=== PATIENT | female | born 1945 | race Caucasian/White ===

== ENCOUNTER 2021-03-09 11:46 | Emergency (ER) | payer OTHER, MEDICARE, BC, SELFPAY ==
[2021-03-09 11:48] VITALS: BP 162/84; PULSE 82; RESP 15; TEMP 36.4; O2SAT 95; BMI 29.0
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
[2021-03-09 12:50] VITALS: RESP 18
== END 2021-03-09 12:52 | disposition home or self-care (01) ==
LOC: ED 12:47
PROVIDERS: Emergency Provider Emergency Medicine; PCP Internal Medicine
DX: Z04.1 Encounter for examination and observation following transport accident (principal)
CPT/HCPCS: 99284

== ENCOUNTER 2021-04-29 08:14 | Emergency (ER) | payer MEDICARE, BC, SELFPAY ==
[2021-04-29 08:15] VITALS: BP 124/81; PULSE 75; RESP 16; TEMP 36.4; O2SAT 98; BMI 30.2
--- NOTE | 2021-04-29 08:46 | EDS_ITS ---
HPI History of Present Illness Chief Complaint: Complaint Informant: patient Narrative Narrative: 75-year-old female presents with concern for decreased urinary output. States that she has not produced a significant amount of urine since yesterday afternoon. Patient concerned because she has chronic kidney disease. Denies any fever or chills. States that she is recently been treated with pain medication secondary to back pain and sciatica that she has been dealing with. Denies any hematuria or abdominal pain. [facility] Medical History Chronic kidney disease Colonic polyp HLD (hyperlipidemia) HTN (hypertension) Hypokalemia Osteopenia Skin neoplasm Home Medications atenolol [Tenormin] 25 mg PO DAILY 03/09/21 [History Last Taken Unknown] rosuvastatin 2.5 mg PO DAILY 03/09/21 [History Last Taken Unknown] triamterene-hydrochlorothiazid 0.5 tab PO DAILY 03/09/21 [History Last Taken Unknown] Allergy/AdvReac Type Severity Reaction Status Date / Time JOHN Inhibitors Allergy Angioedema Verified 04/29/21 08:41 diphenhydramine Allergy HEART Verified 04/29/21 08:41 [From Benadryl] PALPITATIONS lisinopril [From Prinivil] Allergy Swelling Verified 04/29/21 08:41 metformin Allergy Hives Verified 04/29/21 08:41 Social History Smoking Status: Never smoker [facility] ED Constitutional Constitutional ED: Denies chills, fever(s) or sweats Eyes Eyes: Denies blurry vision, change in vision or diplopia ENT ENT ED: Denies rhinorrhea or sore throat Cardiovascular Cardiovascular: Denies chest pain, orthopnea, palpitations or racing heartbeat Respiratory/Chest Respiratory/Chest: Denies cough, dyspnea, dyspnea on exertion, orthopnea or sputum Gastrointestinal Gastrointestinal: Denies abdominal pain, constipation, diarrhea, melena, nausea or vomiting Genitourinary Genitourinary ED: Reports other Details: decreased urine output ; Denies dysuria, hematuria or urinary frequency Musculoskeletal Musculoskeletal: Denies arthralgias, myalgias or neck pain Integumentary Denies rash Neurologic Neurologic: Denies headache(s), paresthesias or weakness Psychiatric Psychiatric: Denies anxiety or depression Hematologic/Lymphatic Hematologic/Lymphatic: Denies easy bleeding or easy bruising Allergic/Immunologic Allergic/Immunologic ED: Denies mouth swelling or tongue swelling EXAM Physical Exam Const Vital Signs: 04/29/21 08:15 Temperature 97.6 F L Temperature Source Oral Pulse Rate 75 Respiratory Rate 16 Blood Pressure 124/81 H Blood Pressure Mean 95 Pulse Ox 98 Oxygen Delivery Method Room Air Positive well nourished and well developed General Appearance ED: well developed HEENT Reports TM's clear and moist mucous membranes normocephalic and atraumatic Tympanic Membrane ED: Yes TM's clear Eyes PERRL and EOMs intact bilaterally Neck no lymphadenopathy, supple and no JVD Chest Wall inspection of chest normal Resp normal respiratory effort and clear to auscultation bilaterally Cardio regular rate, S1 normal heart sound, S2 normal heart sound and no murmurs Peripheral Pulses: pulses 2+ throughout GI soft to palpation, non-tender and non-distended Back/Spine no CVA tenderness and no thoracic nor lumbar tenderness Extremity normal to inspection General Extremety ED: Negative for edema or tenderness General Extremity: Negative for edema Neuro oriented x3, CN's II-XII intact bilaterally and no sensory deficits noted Sensorium / Orientation: alert Motor Exam: strength 5/5 throughout Psych mental status grossly normal Skin no rashes or lesions noted MDM MDM MDM Narrative Medical decision making narrative: Patient appears well and nontoxic. Vital signs within normal limits. Lab work shows some mild ketonuria without infection. Creatinine of 1.01 with a BUN of 21. Patient given small fluid bolus. Patient able to make urine and feeling improved. Advised on continued p.o. hydration. Asked to follow-up with solar systems designer. Asked to return for new or worsening symptoms. Patient agreeable and discharged home in stable condition. Lab Data Attestation: I reviewed the patient's lab results. Labs: Laboratory Results - last 24 hr 04/29/21 04/29/21 08:30 09:02 Sodium 140 Potassium 3.6 Chloride 106 Carbon Dioxide 23.0 Anion Gap 11 BUN 21 H Creatinine 1.01 Estim Creat Clear Calc 37.48 Est GFR (MDRD) Af Amer 68 Est GFR (MDRD) Non-Af 57 L BUN/Creatinine Ratio 20.8 H Glucose 118 H Calcium 9.0 Urine Color Yellow Urine Clarity Clear Urine pH 5.0 Ur Specific [place] 1.025 Urine Protein 15 H Urine Glucose (UA) Normal Urine Ketones 50 H Urine Occult Blood Negative Urine Nitrite Negative Urine Bilirubin Negative Urine Urobilinogen Normal Ur Leukocyte Esterase Negative Urine RBC 0 SEEN Urine WBC 0 SEEN Ur Squamous Epith Cells 0-5 SEEN Urine Bacteria RARE Urine Mucus 0 SEEN Discharge Plan Triage Chief Complaint: Complaint ED Provider: Vasu Jaffe Dx/Rx/DC Orders Clinical Impression: Volume depletion Instructions: Dehydration Prescriptions: No Action atenolol [Tenormin] 25 mg tablet 25 mg PO DAILY RF: 0 triamterene-hydrochlorothiazid 37.5-25 mg tablet 0.5 tab PO DAILY RF: 0 rosuvastatin 5 mg tablet 2.5 mg PO DAILY RF: 0 Primary Care Provider: Latasha Jo Referrals: Latasha Jo MD [Primary Care Provider] - 2 Days Disposition Disposition: Home, Self Care
[2021-04-29 08:53] LABS: Mucous, Urine 0 SEEN /hpf (<or=2+); Red Blood Cells-Urine 0 SEEN /hpf (0-5); White Blood Cells 0 SEEN /hpf (0-5)
[2021-04-29 09:07] LABS: Color, Urine Yellow (Yellow); Glucose, Dipstick Normal (Normal); Ketone-Dipstick 50 mg/dl (Negative); Leukocyte Esterase-Dipstick Negative /ul (Negative); Nitrite-Dipstick Negative (Negative); Occult Blood-Urine Negative /ul (Negative); Protein-Dipstick 15 mg/dl (Negative); Specific Gravity, Urine 1.025 (1.002-1.030); Urine Bilirubin Dipstick Negative (Negative); Urine Clarity Clear (Clear); Urine Urobilinogen Normal (Normal)
[2021-04-29 09:15] LABS: Bacteria RARE /hpf (None Seen); Squamous Epithelial Cells - UA 0-5 SEEN /hpf (5-10)
[2021-04-29 09:26] LABS: Anion Gap 11 (5-15); BUN 21 mg/dL (7-18); BUN/Creat Ratio 20.8 RATIO (10-20); Chloride 106 mmol/L (98-107); Creatinine, Serum 1.01 mg/dL (0.55-1.02); EST Glomerular Filtration Rate 57 mL/min (>60); Est Glom Filt Rate - Afr Amer 68 mL/min (>60); Estimated Creatinine Clearance 37.48 ml/min; Glucose 118 mg/dL (74-106); Potassium 3.6 mmol/L (3.5-5.1); Sodium Level 140 mmol/L (136-145)
[2021-04-29 10:28] VITALS: PULSE 71; RESP 16; O2SAT 97
--- NOTE | 2021-04-29 10:28 | ED.RN ---
THIS NURSE REVIEWED D/C INSTRUCTIONS WITH PT. PT VERBALIZED UNDERSTANDING OF INSTRUCTIONS. IV D/C. IV CATHETER INTACT. PT TOLERATED WELL. PT DENIES FURTHER NEEDS OR QUESTIONS AT THIS TIME
== END 2021-04-29 10:29 | disposition home or self-care (01) ==
PROVIDERS: Emergency Provider Emergency Medicine; PCP Internal Medicine
DX: E86.9 Volume depletion, unspecified (principal); I12.9 Hypertensive chronic kidney disease with stage 1 through stage 4 chronic kidney disease, or unspecified chronic kidney disease; N18.9 Chronic kidney disease, unspecified; E78.5 Hyperlipidemia, unspecified; Z79.899 Other long term (current) drug therapy
CPT/HCPCS: 80048; 81001; 99283; J7040; A4216

== ENCOUNTER → 2021-06-22 14:51 | Outpatient (CLI) | payer MEDICARE, BC, SELFPAY ==
[2021-05-22 10:51] VITALS: BMI 28.7
--- NOTE | 2021-06-22 14:52 | MRI_ITS ---
STUDY: MRI LUMBAR SPINE WITHOUT CONTRAST REASON FOR EXAM: Female, 75 years old. lbp, right hip pain TECHNIQUE: Standardized fat and water weighted pulse sequences were obtained in the sagittal and axial planes. COMPARISON: 05/22/2021 lumbar spine FINDINGS: T12-L1: There is demonstrated disc desiccation with no significant spinal canal narrowing or foraminal narrowing. Normal lumbar lordosis. There is a levoscoliosis of the lumbar spine with apex at L3 roughly measuring 40 degrees from the inferior endplate of L4 to the superior endplate of L1.. Normal conus medullaris that terminates at the L1. L1-2: There is demonstrated partial fusion along the right disc space due to scoliosis with disc desiccation of the remaining disc space. No significant disc bulge or spinal canal narrowing. There is foraminal narrowing with apparent mild increased signal of the exiting left nerve root at this level. L2-3: There is demonstrated degenerative disc changes most notably along the superior endplate of L3 with likely chronic compression deformity with no evidence of increased or signal to suggest acute injury. There is right facet hypertrophy and arthropathy with ligamentum flavum hypertrophy resulting in severe spinal canal narrowing and crowding of cauda equina at this level there is a foraminal disc bulge on the left resulting in severe left foraminal narrowing and facet arthropathy on the right resulting in moderate severe right foraminal narrowing. L3-4: Disc desiccation and broad-based disc bulge is present with facet hypertrophy resulting in moderate spinal canal narrowing at this level. There is bilateral facet hypertrophy resulting in moderate left and mild to moderate right foraminal narrowing. L4-5: Disc desiccation and preserved disc space with broad-based disc bulge is present. Bilateral facet arthropathy and hypertrophy is present resulting in mild to moderate spinal canal narrowing and moderate to severe left foraminal narrowing. L5-S1: Disc desiccation and broad-based disc bulge is present with no significant spinal canal narrowing or foraminal narrowing. Normal visualized sacral ala. Normal visualized paraspinous soft tissue structures. MRI/Spine Lumbar (Routine) IMPRESSION: 1. Severe levoscoliotic curve with apex at L3 measuring approximately 40 degrees. 2. L2-3 severe spinal canal narrowing with severe left foraminal narrowing and moderate right foraminal narrowing, clinically correlate for exiting L2-3 radiculopathy. 3. L3-4 moderate spinal canal narrowing with moderate left and mild to moderate right foraminal narrowing and additional degenerative changes as described . 4. L4-5 moderate spinal canal narrowing and moderate to severe left foraminal narrowing. Electronically Signed: Todd Ford DO at 9:53 EDT , Service support ,
== END ==
PROVIDERS: PCP Internal Medicine; Visit Provider Orthopaedic Surgery
DX: M47.26 Other spondylosis with radiculopathy, lumbar region (principal); M48.061 Spinal stenosis, lumbar region without neurogenic claudication
CPT/HCPCS: 72148

== ENCOUNTER 2021-07-26 21:19 | Emergency (ER) | payer MEDICARE, BC, SELFPAY ==
[2021-07-26 21:20] VITALS: BP 139/83; PULSE 73; RESP 16; TEMP 36.4; O2SAT 96; BMI 28.1
--- NOTE | 2021-07-26 22:16 | EKG12_ITS ---
Test Reason : DYSRHYTHMIA Blood Pressure : / mmHG Vent. Rate : 063 BPM Atrial Rate : 063 BPM P-R Int : 132 ms QRS Dur : 084 ms QT Int : 402 ms P-R-T Axes : 044 014 021 degrees QTc Int : 411 ms Normal sinus rhythm Normal ECG Confirmed by MOE PETERSON, SARA ([id number]), primer expeditor and drier BECCA ARROYO ([id number]) on 07/28/2021 1:18:01 PM Referred By: PAPI Confirmed By:CORIE ROSA MD
--- NOTE | 2021-07-26 22:17 | EX.ED.DYSGE1 ---
HPI History of Present Illness Chief Complaint: Palpitations Informant: patient Onset/Context/Timing Onset: Weeks Timing: Intermittent Current Severity: Gone Maximum Severity: Moderate Narrative Narrative: Patient presents secondary to palpitations. She has a history of intermittent palpitations over the past month or so. She was seen by her primary care physician last week and is currently wearing a 2-week heart monitor. Patient states typically after she takes her atenolol in the afternoon palpitations will improve. This evening around 930 palpitations seem to worsen. She does admit to some anxiety related with this. She does not feel as if she is going to pass out. She has not been diagnosed with any arrhythmias. [facility] Medical History Chronic kidney disease Colonic polyp HLD (hyperlipidemia) HTN (hypertension) Hx of nephrolithotomy with removal of calculi Hypokalemia Osteopenia Skin neoplasm Home Medications atenolol [Tenormin] 25 mg PO DAILY 03/09/21 [History Last Taken Unknown] rosuvastatin 2.5 mg PO DAILY 03/09/21 [History Last Taken Unknown] triamterene-hydrochlorothiazid 0.5 tab PO DAILY 03/09/21 [History Last Taken Unknown] calcium carbonate-vitamin D3 250 mg-125 unit tablet 1 tab PO DAILY 05/22/21 [History Last Taken Unknown] vit C,E,zinc,copper-[id number] 250 mg-lutein 5 mg-zeaxanthin 1 mg capsule 1 cap PO DAILY 05/22/21 [History Last Taken Unknown] lorazepam [Ativan] 0.5 mg PO BID PRN #14 tab 07/26/21 [Rx Last Taken Unknown] Allergy/AdvReac Type Severity Reaction Status Date / Time bee pollen Allergy Intermediate Swelling Verified 07/26/21 21:21 JOHN Inhibitors Allergy Angioedema Verified 07/26/21 21:21 diphenhydramine Allergy HEART Verified 07/26/21 21:21 [From Benadryl] PALPITATIONS lisinopril [From Prinivil] Allergy Swelling Verified 07/26/21 21:21 metformin Allergy Hives Verified 07/26/21 21:21 Family History Mother Hypertension Arthritis Skin cancer Social History household members: spouse housing: house Smoking Status: Never smoker alcohol intake: current alcohol intake frequency: a few times a week what type of physical activity do you participate in: other details: treadmill frequency: 5-6 times per week duration: 45-60 minutes/day do you feel safe at home: Yes ROS ROS ED Constitutional Constitutional ED: Denies chills or fever(s) Eyes Eyes: Denies change in vision ENT ENT ED: Denies sore throat Cardiovascular Cardiovascular: Reports palpitations and racing heartbeat; Denies chest pain Respiratory/Chest Respiratory/Chest: Denies cough or dyspnea Gastrointestinal Gastrointestinal: Denies abdominal pain, diarrhea, nausea or vomiting Genitourinary Genitourinary ED: Denies dysuria Musculoskeletal Musculoskeletal: Denies back pain Integumentary Denies rash Neurologic Neurologic: Denies headache(s) or weakness Psychiatric Psychiatric: Reports anxiety; Denies depression Allergic/Immunologic Allergic/Immunologic ED: Denies urticaria EXAM Physical Exam Const Vital Signs: 07/26/21 21:20 07/26/21 22:45 Temperature 97.5 F L Temperature Source Temporal Pulse Rate 73 61 Respiratory Rate 16 16 Blood Pressure 139/83 H 131/64 H Blood Pressure Mean 101 86 Pulse Ox 96 100 Oxygen Delivery Method Room Air Room Air Positive well nourished and well developed General Appearance ED: well developed HEENT Reports moist mucous membranes Eyes PERRL Neck supple Chest Wall inspection of chest normal and palpation of chest normal Resp normal respiratory effort and clear to auscultation bilaterally Cardio regular rate and regular rhythm GI normal to inspection, nondistended, normoactive bowel sounds Extremity normal to inspection Neuro oriented x3 Sensorium / Orientation: alert Skin no rashes or lesions noted MDM MDM MDM Narrative Medical decision making narrative: EKG, labs, chest x-ray obtained. Lab Data Attestation: I reviewed the patient's lab results. Labs: Laboratory Results - last 24 hr 07/26/21 07/26/21 22:40 22:40 WBC 7.4 RBC 4.98 Hgb 15.0 Hct 45.3 MCV 91.0 MCH 30.1 MCHC 33.1 RDW Std Deviation 39.4 RDW Coeff of Yadi 11.9 Plt Count 245 MPV 10.0 Immature Gran % (Auto) 0.300 Neut % (Auto) 67.9 Lymph % (Auto) 21.3 Schleicher % (Auto) 9.1 Eos % (Auto) 1.1 Baso % (Auto) 0.3 Absolute Neuts (auto) 5.0 Absolute Lymphs (auto) 1.57 Nucleated RBC % 0 Sodium 136 Potassium 3.8 Chloride 104 Carbon Dioxide 29.0 Anion Gap 3 L BUN 20 H Creatinine 0.94 Estim Creat Clear Calc 38.42 Est GFR (MDRD) Af Amer 74 Est GFR (MDRD) Non-Af 61 BUN/Creatinine Ratio 21.2 H Glucose 126 H Calcium 9.1 Troponin I High Sens 11 TSH 1.19 Radiography Chest X-Ray - ED: 1 View, Read by ED Physician, Normal, Heart, Lungs, Mediastinum and - (Questionable hiatal hernia) Diagnostic Testing: Radiology Impression Chest X-Ray 07/26/21 22:38 IMPRESSION: No acute radiographic abnormalities. Electronically Signed: Micah Moctezuma MD at 23:08 EDT Tel , Service support , EKG Initial EKG: Attestation: I personally reviewed and interpreted this EKG as follows: Interpretation: Sinus Rhythm (Sinus at 63 with no acute ischemia. Normal intervals.) Treatment and Re-Evaluation Comments:: Repeat evaluation patient resting comfortably. She has had no arrhythmias while here. I did recommend she contact her doctor tomorrow to see if they can interrogate her device early as she did have quite a bit of symptoms today. Patient is requesting something for anxiety. She will be given very low-dose Ativan. Discharge Plan Triage Chief Complaint: Palpitations ED Provider: Roselia Mejia Dx/Rx/DC Orders Clinical Impression: Palpitations Instructions: ED Palpitations Prescriptions: New lorazepam [Ativan] 0.5 mg tablet 0.5 mg PO BID PRN (Reason: anxiety) Qty: 14 RF: 0 No Action calcium carbonate-vitamin D3 250-125 mg-unit tablet 1 tab PO DAILY RF: 0 Ocuvite Adult 50 Plus 250-5-1 mg capsule 1 cap PO DAILY RF: 0 atenolol [Tenormin] 25 mg tablet 25 mg PO DAILY RF: 0 triamterene-hydrochlorothiazid 37.5-25 mg tablet 0.5 tab PO DAILY RF: 0 rosuvastatin 5 mg tablet 2.5 mg PO DAILY RF: 0 Primary Care Provider: Latasha Jo Referrals: Latasha Jo MD [Primary Care Provider] - As soon as possible Disposition Disposition: Home, Self Care
--- NOTE | 2021-07-26 22:18 | NURSING ---
NO OLD EKGS
--- NOTE | 2021-07-26 22:38 | RAD_ITS ---
INDICATION: palpitations EXAMINATION/TECHNIQUE: X-RAY - XR Chest 1 View COMPARISON: None. FINDINGS: The lungs are clear. The cardiomediastinal silhouette is unremarkable. Mechanical device projects over the left hemithorax. No pleural effusion or pneumothorax. No acute osseous abnormalities. RAD/Chest 1 View (Portable) IMPRESSION: No acute radiographic abnormalities. Electronically Signed: Micah Moctezuma MD at 23:08 EDT Tel , Service support ,
[2021-07-26 22:45] VITALS: BP 131/64; PULSE 61; RESP 16; O2SAT 100
[2021-07-26 22:56] LABS: Absolute Lymphocyte Count 1.57 X10^3/uL (0.83-4.51); Basophil# 0.02 X10^3/uL; Basophil% 0.3 % (0-1); Eosinophil# 0.08 X10^3/uL; Eosinophils% 1.1 % (0-5); Hematocrit 45.3 % (37-47); Lymphocyte # 1.57 X10^3/ul (0.83-4.51); Lymphocyte % 21.3 % (19-41); Mean Corp Hgb Conc 33.1 g/dL (32-36); Mean Corpuscular Hgb 30.1 pg (27.0-32.0); Monocyte# 0.67 X10^3/uL; Monocyte% 9.1 % (0-10); NRBC Flagged by Analyzer 0 % (0-5); Neutrophil % 67.9 % (47-70); Platelet Count 245 K/mm3 (150-450); RBC Distribution Width CV 11.9 % (11.6-14.6); RBC Distribution Width SD 39.4 fl (35.1-43.9); Red Blood Count 4.98 M/mm3 (4.2-5.4); White Blood Count 7.4 K/mm3 (4.4-11.0)
[2021-07-26 23:19] LABS: Anion Gap 3 (5-15); BUN 20 mg/dL (7-18); BUN/Creat Ratio 21.2 RATIO (10-20); Calcium,Total 9.1 mg/dL (8.5-10.1); Chloride 104 mmol/L (98-107); Creatinine, Serum 0.94 mg/dL (0.55-1.02); EST Glomerular Filtration Rate 61 mL/min (>60); Est Glom Filt Rate - Afr Amer 74 mL/min (>60); Estimated Creatinine Clearance 38.42 ml/min; Glucose 126 mg/dL (74-106); Potassium 3.8 mmol/L (3.5-5.1); Sodium Level 136 mmol/L (136-145); Thyroid Stim Hormone (TSH) 1.19 uIU/mL (0.358-3.74); Troponin-I HS 11 pg/mL (3.0-54.0)
[2021-07-27 00:08] VITALS: BP 164/66; PULSE 72; RESP 15; O2SAT 98
[2021-07-27] MEDS: LORazepam 0.5 MG Tablet PO (00:38)
== END 2021-07-27 01:38 | disposition home or self-care (01) ==
PROVIDERS: Emergency Provider Emergency Medicine; PCP Internal Medicine
DX: R00.2 Palpitations (principal); I12.9 Hypertensive chronic kidney disease with stage 1 through stage 4 chronic kidney disease, or unspecified chronic kidney disease; N18.9 Chronic kidney disease, unspecified; E78.5 Hyperlipidemia, unspecified; F41.9 Anxiety disorder, unspecified; Z79.899 Other long term (current) drug therapy
CPT/HCPCS: 71045; 80048; 84443; 84484; 85025; 93005; 99284

== ENCOUNTER 2023-03-31 20:47 | Emergency (ER) | payer MEDICARE, BC, SELFPAY ==
[2023-03-31 20:47] VITALS: BP 133/103; PULSE 94; RESP 16; TEMP 36.8; O2SAT 96; BMI 31.7
--- NOTE | 2023-03-31 21:22 | CT_ITS ---
EXAM: CT ABDOMEN AND PELVIS WITHOUT INTRAVENOUS CONTRAST CLINICAL INDICATION: Pain TECHNIQUE: Helically acquired images were obtained of the abdomen and pelvis without intravenous contrast. CTDIvol = ( 11.14 ) mGy, DLP = ( 688.94 ) mGycm This CT exam was performed using one or more of the following dose reduction techniques: automated exposure control, adjustment of the mA and/or kV according to patient size, and/or use of iterative reconstruction technique. COMPARISON: No relevant prior studies available. FINDINGS: LOWER THORAX: Large hiatal hernia. Lung bases are clear. No cardiomegaly. No significant pericardial effusion. ABDOMEN: LIVER: Unremarkable. Homogeneous. GALLBLADDER AND BILE DUCTS: Unremarkable. No calcified gallstones. No gallbladder distention or wall edema. No intra- or extrahepatic biliary ductal dilation. PANCREAS: Unremarkable. No focal cystic mass. SPLEEN: Unremarkable. Normal size without focal cystic or solid mass. ADRENALS: Unremarkable. No nodules. KIDNEYS AND URETERS: Unremarkable. Normal renal size and position. No hydronephrosis. STOMACH AND BOWEL: Distal colonic diverticulosis but no diverticulitis. No colitis. No bowel obstruction. PELVIS: APPENDIX: No evidence of acute appendicitis. BLADDER: Unremarkable. REPRODUCTIVE: Unremarkable as visualized. No mass. ABDOMEN and PELVIS: INTRAPERITONEAL SPACE: Unremarkable. No ascites or other fluid collection. No free air. BONES/JOINTS: Degenerative changes of the pelvis and spine. Levoscoliosis centered at the L2 level. Chronic compression fracture involving the L1 and L3 vertebral bodies. No suspicious lytic or blastic abnormality. SOFT TISSUES: Small fat-containing left inguinal hernia. VASCULATURE: Unremarkable. Abdominal aorta is non-dilated. LYMPH NODES: Unremarkable. No enlarged lymph nodes. CT/Abdomen/Pelvis without Cont IMPRESSION: No acute or inflammatory disease or bowel obstruction. Distal colonic diverticulosis without acute diverticulitis. 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 Other ancillary findings as above. Electronically Signed: Sen Fermin MD at 23:00 EDT ,
[2023-03-31] MEDS: Morphine 4 MG/ML Syringe IV (21:44)
[2023-03-31] MEDS: Ondansetron 4 MG/2 ML Vial IV (21:44)
[2023-03-31] MEDS: 0.9% Normal Saline 1,000 ML 1000 ML IV (21:44)
[2023-03-31 22:05] LABS: Anion Gap 8 (5-15); BUN 22 mg/dL (7-18); BUN/Creat Ratio 18.3 RATIO (10-20); Calcium,Total 9.2 mg/dL (8.5-10.1); Chloride 99 mmol/L (98-107); EST Glomerular Filtration Rate 46 mL/min (>60); Est Glom Filt Rate - Afr Amer 56 mL/min (>60); Estimated Creatinine Clearance 27.75 ml/min; Glucose 144 mg/dL (74-106); Potassium 3.8 mmol/L (3.5-5.1); Sodium Level 133 mmol/L (136-145)
[2023-03-31 22:07] LABS: Absolute Lymphocyte Count 1.15 X10^3/uL (0.83-4.51); Absolute Neutrophil Count 4.9 X10^3/uL (2.0-7.7); Basophil# 0.03 X10^3/uL; Basophil% 0.4 % (0-1); Eosinophil# 0.06 X10^3/uL; Eosinophils% 0.9 % (0-5); Hematocrit 42.4 % (37-47); Hemoglobin 14.3 g/dL (12.0-15.0); Lymphocyte # 1.15 X10^3/ul (0.83-4.51); Lymphocyte % 16.6 % (19-41); Mean Corp Hgb Conc 33.7 g/dL (32-36); Mean Corpuscular Hgb 30.2 pg (27.0-32.0); Mean Corpuscular Volume 89.6 fL (81-99); Mean Platelet Vol. 9.1 fl (6.2-12.0); Monocyte# 0.79 X10^3/uL; Monocyte% 11.4 % (0-10); NRBC Flagged by Analyzer 0 % (0-5); Neutrophil # 4.88 X10^3/uL (2.7-7.7); Neutrophil % 70.3 % (47-70); Platelet Count 247 K/mm3 (150-450); RBC Distribution Width CV 12.2 % (11.6-14.6); RBC Distribution Width SD 40.1 fl (35.1-43.9); Red Blood Count 4.73 M/mm3 (4.2-5.4); White Blood Count 6.9 K/mm3 (4.4-11.0)
--- NOTE | 2023-03-31 22:24 | EX.ED.DYSGE1 ---
HPI History of Present Illness Chief Complaint: Complaint Informant: patient Onset/Context/Timing Onset: Today Context: Gradual Onset Timing: Continuous Quality: Aching Location: Right flank Worsened by: Nothing Relieved by: Nothing Narrative Narrative: Patient presents with urinary hesitancy that began today. Patient states it is gradually gotten worse throughout the day. Patient states she feels like she needs to urinate but is only able to urinate small amounts. Patient denies any dysuria or hematuria. Patient admits to some nausea but denies any vomiting. Patient states that she has some pain on her right flank area. Patient states she was recently started on meloxicam for this pain. Patient states her urinary symptoms started soon after starting the meloxicam. Patient denies any fevers or chills. Patient denies any diarrhea or constipation. [facility] Medical History Chronic kidney disease Colonic polyp HLD (hyperlipidemia) HTN (hypertension) Hx of nephrolithotomy with removal of calculi Hypokalemia Osteopenia Skin neoplasm Home Medications atenolol 25 mg tablet (Tenormin) 25 mg PO DAILY 03/09/21 [History Last Taken Unknown] rosuvastatin 5 mg tablet 2.5 mg PO DAILY 03/09/21 [History Last Taken Unknown] triamterene 37.5 mg-hydrochlorothiazide 25 mg tablet 0.5 tab PO DAILY 03/09/21 [History Last Taken Unknown] calcium carbonate 250 mg-vitamin D3 3.125 mcg (125 unit) tablet 1 tab PO DAILY 05/22/21 [History Last Taken Unknown] vit C,E,zinc,copper-bdtit0p 250 mg-lutein 5 mg-zeaxanthin 1 mg capsule (Ocuvite Adult 50 Plus) 1 cap PO DAILY 05/22/21 [History Last Taken Unknown] lorazepam 0.5 mg tablet (Ativan) 0.5 mg PO BID PRN anxiety #14 tabs 07/26/21 [Rx Last Taken Unknown] Allergy/AdvReac Type Severity Reaction Status Date / Time bee pollen Allergy Intermediate Swelling Verified 03/31/23 20:49 JOHN Inhibitors Allergy Angioedema Verified 03/31/23 20:49 diphenhydramine Allergy HEART Verified 03/31/23 20:49 [From Benadryl] PALPITATIONS lisinopril [From Prinivil] Allergy Swelling Verified 03/31/23 20:49 metformin Allergy Hives Verified 03/31/23 20:49 Family History Mother Hypertension Arthritis Skin cancer Social History household members: spouse housing: house Smoking Status: Never smoker alcohol intake: current alcohol intake frequency: a few times a week what type of physical activity do you participate in: other details: treadmill frequency: 5-6 times per week duration: 45-60 minutes/day do you feel safe at home: Yes ROS ROS ED Constitutional Constitutional ED: Denies chills or fever(s) Eyes Eyes: Denies blurry vision or change in vision ENT ENT ED: Denies rhinorrhea or sore throat Cardiovascular Cardiovascular: Denies chest pain or palpitations Respiratory/Chest Respiratory/Chest: Denies cough or dyspnea Gastrointestinal Gastrointestinal: Reports nausea; Denies vomiting Genitourinary Genitourinary ED: Denies dysuria or hematuria Musculoskeletal Musculoskeletal: Reports back pain; Denies neck pain Integumentary Denies abscess or rash Neurologic Neurologic: Denies headache(s) or weakness Allergic/Immunologic Allergic/Immunologic ED: Denies mouth swelling or urticaria EXAM Physical Exam Const Vital Signs: 03/31/23 20:47 Temperature 98.2 F Temperature Source Temporal Pulse Rate 94 Respiratory Rate 16 Blood Pressure 133/103 H Blood Pressure Mean 113 Pulse Ox 96 Oxygen Delivery Method Room Air Positive well nourished and well developed General Appearance ED: well developed HEENT Reports moist mucous membranes Neck supple and no JVD Resp normal respiratory effort and clear to auscultation bilaterally Cardio regular rate, regular rhythm and no murmurs GI normal to inspection, nondistended, normoactive bowel sounds and non-tender Palpation: soft Back/Spine General Back: CVA tenderness right (Mild) Extremity normal to inspection General Extremety ED: Negative for edema or tenderness General Extremity: Negative for edema Neuro oriented x3, CN's II-XII intact bilaterally and no sensory deficits noted Sensorium / Orientation: alert Motor Exam: strength 5/5 throughout Psych mental status grossly normal Skin no rashes or lesions noted MDM MDM MDM Narrative Medical decision making narrative: Differential diagnosis includes ureteral calculus, ureteral obstruction, urinary tract infection, pyelonephritis, gastroenteritis, acute kidney injury, and electrolyte abnormality. CBC will be obtained to assess for leukocytosis and anemia. Basic metabolic profile will be obtained to assess for electrolyte abnormality and renal function. CT scan of the abdomen and pelvis will be obtained to assess for ureteral calculus, bowel obstruction, and perforation. Lab Data Attestation: I reviewed the patient's lab results. Lab results narrative: CBC was reviewed and was within normal limits. Basic metabolic profile was reviewed. Creatinine was slightly elevated at 1.2 sodium was slightly low at 133. BUN was 22. Urinalysis was reviewed. There is no evidence of urinary tract infection or hematuria. Labs: Laboratory Results - last 24 hr 03/31/23 03/31/23 03/31/23 21:42 21:42 22:02 WBC Cancelled 6.9 Corrected WBC Cancelled RBC Cancelled 4.73 Hgb Cancelled 14.3 Hct Cancelled 42.4 MCV Cancelled 89.6 MCH Cancelled 30.2 MCHC Cancelled 33.7 RDW Std Deviation Cancelled 40.1 RDW Coeff of Yadi Cancelled 12.2 Plt Count Cancelled 247 MPV Cancelled 9.1 Immature Gran % (Auto) Cancelled 0.400 Neut % (Auto) Cancelled 70.3 H Lymph % (Auto) Cancelled 16.6 L [place] % (Auto) Cancelled 11.4 H Eos % (Auto) Cancelled 0.9 Baso % (Auto) Cancelled 0.4 Absolute Neuts (auto) Cancelled 4.9 Absolute Lymphs (auto) Cancelled 1.15 Total Counted Cancelled Neutrophils % (Manual) Cancelled Band Neutrophils % Cancelled Lymphocytes % (Manual) Cancelled Monocytes % (Manual) Cancelled Eosinophils % (Manual) Cancelled Basophils % (Manual) Cancelled Metamyelocytes % Cancelled Myelocytes % Cancelled Promyelocytes % Cancelled Blast Cells % Cancelled Plasma Cell % (Manual) Cancelled Other Cells % Cancelled Nucleated RBC % Cancelled 0 Nucleated RBCs/100 WBC Cancelled Differential Comment Cancelled Diff Path Review Cancelled Hypersegmented Neuts Cancelled Atypical Lymphocytes Cancelled Reactive Lymphocytes Cancelled Smudge Cells Cancelled Toxic Granulation Cancelled Toxic Vacuolation Cancelled Dohle Bodies Cancelled Tawanda Rods Cancelled Platelet Estimate Cancelled Plt Morphology Comment Cancelled RBC Morphology Cancelled Polychromasia Cancelled Hypochromasia Cancelled Poikilocytosis Cancelled Basophilic Stippling Cancelled Anisocytosis Cancelled Microcytosis Cancelled Macrocytosis Cancelled Spherocytes Cancelled Sickle Cells Cancelled Target Cells Cancelled Tear Drop Cells Cancelled Ovalocytes Cancelled Stomatocytes Cancelled [place] Bodies Cancelled Noe Cells Cancelled Bite Cells Cancelled Crenated Cell Cancelled Acanthocytes (Spur) Cancelled Rouleaux Cancelled Schistocytes Cancelled Sodium 133 L Potassium 3.8 Chloride 99 Carbon Dioxide 26.0 Anion Gap 8 BUN 22 H Creatinine 1.20 H Estim Creat Clear Calc 27.75 Est GFR (MDRD) Af Amer 56 L Est GFR (MDRD) Non-Af 46 L BUN/Creatinine Ratio 18.3 Glucose 144 H Calcium 9.2 Urine Color Urine Clarity Urine pH Ur Specific [place] Urine Protein Urine Glucose (UA) Urine Ketones Urine Occult Blood Urine Nitrite Urine Bilirubin Urine Urobilinogen Ur Leukocyte Esterase Urine RBC Urine WBC Ur Squamous Epith Cells Urine Bacteria Urine Mucus 03/31/23 22:35 WBC Corrected WBC RBC Hgb Hct MCV MCH MCHC RDW Std Deviation RDW Coeff of Yadi Plt Count MPV Immature Gran % (Auto) Neut % (Auto) Lymph % (Auto) [place] % (Auto) Eos % (Auto) Baso % (Auto) Absolute Neuts (auto) Absolute Lymphs (auto) Total Counted Neutrophils % (Manual) Band Neutrophils % Lymphocytes % (Manual) Monocytes % (Manual) Eosinophils % (Manual) Basophils % (Manual) Metamyelocytes % Myelocytes % Promyelocytes % Blast Cells % Plasma Cell % (Manual) Other Cells % Nucleated RBC % Nucleated RBCs/100 WBC Differential Comment Diff Path Review Hypersegmented Neuts Atypical Lymphocytes Reactive Lymphocytes Smudge Cells Toxic Granulation Toxic Vacuolation Dohle Bodies Tawanda Rods Platelet Estimate Plt Morphology Comment RBC Morphology Polychromasia Hypochromasia Poikilocytosis Basophilic Stippling Anisocytosis Microcytosis Macrocytosis Spherocytes Sickle Cells Target Cells Tear Drop Cells Ovalocytes Stomatocytes [place] Bodies [place] Cells Bite Cells Crenated Cell Acanthocytes (Spur) Rouleaux Schistocytes Sodium Potassium Chloride Carbon Dioxide Anion Gap BUN Creatinine Estim Creat Clear Calc Est GFR (MDRD) Af Amer Est GFR (MDRD) Non-Af BUN/Creatinine Ratio Glucose Calcium Urine Color Straw Urine Clarity Clear Urine pH 6.0 Ur Specific [place] 1.010 Urine Protein Negative Urine Glucose (UA) Normal Urine Ketones Negative Urine Occult Blood Negative Urine Nitrite Negative Urine Bilirubin Negative Urine Urobilinogen Normal Ur Leukocyte Esterase Negative Urine RBC 0 SEEN Urine WBC 0 SEEN Ur Squamous Epith Cells 0 SEEN Urine Bacteria 0 SEEN Urine Mucus 0 SEEN Radiography Diagnostic Testing: Clinical Impression(s) from Imaging Studies Abdomen/Pelvis CT 03/31/23 21:22 IMPRESSION: No acute or inflammatory disease or bowel obstruction. Distal colonic diverticulosis without acute diverticulitis. 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 Other ancillary findings as above. Electronically Signed: Sen Fermin MD at 23:00 EDT , CT scan of the abdomen pelvis was obtained. There is no acute inflammatory disease or bowel obstruction. There is no evidence of ureteral calculus or pyelonephritis. There is colonic diverticulosis but no evidence of diverticulitis. There are chronic compression fractures of the lumbar spine. This was interpreted by the radiologist and was also independently reviewed by myself. Treatment and Re-Evaluation :: Patient was given IV fluids, morphine, and Zofran here. Patient was feeling better on reevaluation. Patient was able to urinate without difficulty. Patient was advised of her findings. Patient states she will discontinue the Mobic. Patient was instructed to take ibuprofen instead of Mobic. Patient was instructed to continue the Flexeril and Bolton as previously prescribed. Patient was instructed to follow-up with her primary care physician in 5 to 7 days. Patient was instructed return if worse in any way. Patient understood and was agreeable with the plan. All questions were answered. Discharge Plan Triage Chief Complaint: Complaint ED Provider: Boo Mcallister Dx/Rx/DC Orders Clinical Impression: Urinary hesitancy, Right flank pain Instructions: ED Flank Pain, Uncertain Cause Prescriptions: No Action calcium carbonate-vitamin D3 250-125 mg-unit tablet 1 tab PO DAILY Ocuvite Adult 50 Plus 250-5-1 mg capsule 1 cap PO DAILY atenolol [Tenormin] 25 mg tablet 25 mg PO DAILY Label Comments: TAKE 1 TABLET BY MOUTH ONCE DAILY triamterene-hydrochlorothiazid 37.5-25 mg tablet 0.5 tab PO DAILY Label Comments: TAKE 1 2 TO 1 (ONE HALF TO ONE) TABLET BY MOUTH ONCE DAILY DIRECTED rosuvastatin 5 mg tablet 2.5 mg PO DAILY Label Comments: TAKE 1 TABLET BY MOUTH ONCE DAILY DIRECTED lorazepam [Ativan] 0.5 mg tablet 0.5 mg PO BID PRN (Reason: anxiety) Qty: 14 0RF Primary Care Provider: Latasha Jo Referrals: Latasha Jo MD [Primary Care Provider] - 5-7 Days Disposition Disposition: Home, Self Care
[2023-03-31 23:09] LABS: Bacteria 0 SEEN /hpf (None Seen); Mucous, Urine 0 SEEN /hpf (<or=2+); Red Blood Cells-Urine 0 SEEN /hpf (0-5); Squamous Epithelial Cells - UA 0 SEEN /hpf (5-10); White Blood Cells 0 SEEN /hpf (0-5)
[2023-03-31 23:12] LABS: Color, Urine Straw (Yellow); Glucose, Dipstick Normal (Normal); Ketone-Dipstick Negative (Negative); Leukocyte Esterase-Dipstick Negative /ul (Negative); Nitrite-Dipstick Negative (Negative); Occult Blood-Urine Negative /ul (Negative); Protein-Dipstick Negative (Negative); Urine Bilirubin Dipstick Negative (Negative); Urine Clarity Clear (Clear); Urine Urobilinogen Normal (Normal)
[2023-04-01 00:21] VITALS: BP 146/76; PULSE 74; RESP 18; O2SAT 100
== END 2023-04-01 00:22 | disposition home or self-care (01) ==
PROVIDERS: Emergency Provider Emergency Medicine; PCP Internal Medicine; Visit Provider Emergency Medicine
DX: R39.11 Hesitancy of micturition (principal); N18.30 Chronic kidney disease, stage 3 unspecified; R10.9 Unspecified abdominal pain
CPT/HCPCS: 74176; 80048; 81001; 85025; 96361; 96374; 96375; 99282; J7030; A4216; J2405

== ENCOUNTER 2023-04-06 20:39 | Emergency (ER) | payer MEDICARE, BC, SELFPAY ==
[2023-04-06 20:40] VITALS: BP 148/77; PULSE 88; RESP 20; TEMP 37.1; O2SAT 96
[2023-04-06 20:47] VITALS: BMI 31.6
--- NOTE | 2023-04-06 21:11 | CT_ITS ---
EXAM: CT ABDOMEN AND PELVIS WITH INTRAVENOUS CONTRAST CLINICAL INDICATION: vomitting TECHNIQUE: Helically acquired images were obtained of the abdomen and pelvis with intravenous contrast. This CT exam was performed using one or more of the following dose reduction techniques: automated exposure control, adjustment of the mA and/or kV according to patient size, and/or use of iterative reconstruction technique. CONTRAST: IV 100mL [id number] RADIATION DOSE: Total DLP: 1177.71 mGy-cm. COMPARISON: CT of 03/31/2023. FINDINGS: LOWER THORAX: Large hiatal hernia is again noted the gastric fundus and proximal body positioned above the level of the hemidiaphragms. Adjacent compressive atelectasis within the left lower lobe. No pleural effusion. No coronary artery calcification is visualized. No significant pericardial effusion. ABDOMEN: LIVER: Mild fatty infiltration of the liver. Right hepatic lobe measures 16 cm in cephalocaudal dimension. Portal veins and hepatic veins enhance normally. GALLBLADDER AND BILE DUCTS: Unremarkable. No calcified gallstones. No gallbladder distention or wall edema. No intra- or extrahepatic biliary ductal dilation. PANCREAS: Atrophic pancreas. No findings of acute pancreatitis. No focal cystic or solid mass. SPLEEN: Unremarkable. Normal size without focal cystic or solid mass. ADRENALS: Unremarkable. No nodules. KIDNEYS AND URETERS: Nonspecific perirenal stranding. Symmetric renal nephrograms. No hydronephrosis or obstructing ureteral stone. STOMACH AND BOWEL: Slight thickening of the gastric antral wall. No periduodenal inflammatory changes or distended small bowel loops. Colonic diverticulosis without evidence for acute diverticulitis. No findings of small bowel obstruction or colitis. PELVIS: APPENDIX: No evidence of acute appendicitis. BLADDER: Urinary bladder is nearly empty. REPRODUCTIVE: Atrophic uterus. Hypodense endometrium which measures 9 mm in thickness. No adnexal mass. ABDOMEN and PELVIS: INTRAPERITONEAL SPACE: Unremarkable. No ascites or other fluid collection. No free air. BONES/JOINTS: Thoracolumbar levoscoliosis again noted. Stable L3 compression fracture. Stable thecal sac stenosis at this level due to retropulsion of the posterior superior corner of the chronically compressed vertebral body, facet hypertrophy, and mild broad-based annular bulging. Anterior wedging of the L1 vertebral body is again noted, slightly more severe than on the prior study with increasing sclerosis within this compressed vertebral body secondary to ongoing fracture healing. There is stable mild flattening of the ventral aspect of the thecal sac at this level by slight retropulsion of the posterior cortex. No suspicious lytic abnormality. SOFT TISSUES: Small fat-containing bilateral inguinal hernias. Tiny fat-filled umbilical hernia. VASCULATURE: Mildly calcific abdominal aorta, which is normal in caliber. SMA and MELO enhance normally. LYMPH NODES: Unremarkable. No enlarged lymph nodes. OTHER FINDINGS: L1/2 and L5/S1 disc spaces are again noted to be fused. Visualized lower ribs are intact. CT/Abdomen/Pelvis W IV Cont ONLY IMPRESSION: 1. Mild increase in the degree of compression deformity of T12, now decompressed by approximately 70%. 2. Large hiatal hernia again noted with adjacent compressive atelectasis. 3. Slight thickening of the gastric antral wall suggesting a minimal degree of antritis/gastritis. 4. Colonic diverticulosis, without evidence for acute diverticulitis. 5. Abnormally prominent hypodense endometrium for a patient of this age group, and this could be due to exogenous hormonal therapy or endometrial pathology such as hyperplasia. ADJUTANT GENERAL follow-up suggested, especially there is a history of postmenopausal bleeding. Electronically Signed: Rodriguez Munoz MD at 23:50 EDT ,
--- NOTE | 2023-04-06 21:13 | EX.ED.DYSGE1 ---
[facility] <Dr. Marga Solorzano DO - Last Filed: 04/07/23 16:02> History of Present Illness Chief Complaint: Nausea/Vomiting Informant: patient Narrative Narrative: Patient is a 77-year-old female presenting for nausea, vomiting and constipation. Patient she has been feeling well the past few days and has been more constipated. She notes that she recently hurt her back and has been on oxycodone. She states she has not had a bowel movement in a couple days has not been passing gas. She states she has been feeling as if she is filled up and there is no room left in her stomach. Tonight she tried to drink some water and shortly after that became nauseous. As she did not throw up a cookie that she ate earlier today. She tried to take some oral Zofran with no relief. She threw up again on the way here. She came in for further evaluation. She denies any abdominal pain. She denies any history of any abdominal surgeries. Denies any urinary symptoms at this time. Denies any associated chest pain or difficulty breathing. Denies any sensation of choking or swallowing something wrong. No other complaints at this time. Patient does not think she is ever had an EGD before. She states she is due for colonoscopy this year or next year. [facility] <Dr. Marga Solorzano DO - Last Filed: 04/07/23 16:02> [facility] Medical History Chronic kidney disease Colonic polyp HLD (hyperlipidemia) HTN (hypertension) Hx of nephrolithotomy with removal of calculi Hypokalemia Osteopenia Skin neoplasm Home Medications atenolol 25 mg tablet (Tenormin) 25 mg PO DAILY 03/09/21 [History Last Taken Unknown] rosuvastatin 5 mg tablet 2.5 mg PO DAILY 03/09/21 [History Last Taken Unknown] triamterene 37.5 mg-hydrochlorothiazide 25 mg tablet 0.5 tab PO DAILY 03/09/21 [History Last Taken Unknown] calcium carbonate 250 mg-vitamin D3 3.125 mcg (125 unit) tablet 1 tab PO DAILY 05/22/21 [History Last Taken Unknown] vit C,E,zinc,copper-[id number] 250 mg-lutein 5 mg-zeaxanthin 1 mg capsule (Ocuvite Adult 50 Plus) 1 cap PO DAILY 05/22/21 [History Last Taken Unknown] lorazepam 0.5 mg tablet (Ativan) 0.5 mg PO BID PRN anxiety #14 tabs 07/26/21 [Rx Last Taken Unknown] Allergy/AdvReac Type Severity Reaction Status Date / Time bee pollen Allergy Intermediate Swelling Verified 04/06/23 20:48 JOHN Inhibitors Allergy Angioedema Verified 04/06/23 20:48 diphenhydramine Allergy HEART Verified 04/06/23 20:48 [From Benadryl] PALPITATIONS lisinopril [From Prinivil] Allergy Swelling Verified 04/06/23 20:48 metformin Allergy Hives Verified 04/06/23 20:48 Family History Mother Hypertension Arthritis Skin cancer Social History household members: spouse housing: house Smoking Status: Never smoker alcohol intake: current alcohol intake frequency: a few times a week what type of physical activity do you participate in: other details: treadmill frequency: 5-6 times per week duration: 45-60 minutes/day do you feel safe at home: Yes ROS <Dr. Marga Solorzano DO - Last Filed: 04/07/23 16:02> ROS ED Constitutional Constitutional ED: Denies chills or fever(s) Cardiovascular Cardiovascular: Denies chest pain Respiratory/Chest Respiratory/Chest: Denies cough or dyspnea Gastrointestinal Gastrointestinal: Reports constipation, nausea and vomiting; Denies abdominal pain Genitourinary Genitourinary ED: Denies dysuria Musculoskeletal Musculoskeletal: Reports back pain; Denies arthralgias Integumentary Denies rash Neurologic Neurologic: Denies headache(s) or weakness Hematologic/Lymphatic Hematologic/Lymphatic: Denies anemia or easy bleeding EXAM <Dr. Marga Solorzano DO - Last Filed: 04/07/23 16:02> Physical Exam Const Vital Signs: 04/06/23 20:40 Temperature 98.7 F Temperature Source Temporal Pulse Rate 88 Respiratory Rate 20 H Blood Pressure 148/77 H Blood Pressure Mean 100 Pulse Ox 96 Oxygen Delivery Method Room Air Positive well nourished and well developed General Appearance ED: well developed and NAD HEENT Reports dry mucous membranes Mouth ED: Yes dry mucous membranes Mouth: dry mucous membranes Eyes PERRL and EOMs intact bilaterally Neck supple and no JVD Chest Wall inspection of chest normal and palpation of chest normal Resp normal respiratory effort and clear to auscultation bilaterally Cardio regular rate, regular rhythm and no murmurs GI non-tender and non-distended Auscultation: hypoactive bowel sounds Palpation: soft; Negative for tender or guarding Extremity normal to inspection General Extremety ED: Negative for edema General Extremity: Negative for edema Neuro oriented x3 Sensorium / Orientation: alert Motor Exam: Negative for general weakness Psych mental status grossly normal Skin no rashes or lesions noted <Dr. Sen Turner, DO - Last Filed: 04/07/23 01:01> Physical Exam Const Vital Signs: 04/06/23 20:40 Temperature 98.7 F Temperature Source Temporal Pulse Rate 88 Respiratory Rate 20 H Blood Pressure 148/77 H Blood Pressure Mean 100 Pulse Ox 96 Oxygen Delivery Method Room Air MDM <Dr. Marga Solorzano, DO - Last Filed: 04/07/23 16:02> [facility] MDM Narrative Medical decision making narrative: Patient's evaluated for nausea and vomiting with inability to tolerate p.o. She is also complain of constipation which she attributes to her recent opioid use for back pain. She notes she has not been eating or drinking much but she also has not been feeling well. On exam patient appears nontoxic in no acute distress. She does appear mildly dehydrated. She is given IV fluids and Zofran. Differential includes small bowel obstruction, gastric outlet obstruction, gastritis and esophageal impaction. Her history is not particularly consistent with an esophageal impaction/food bolus. We will obtain lab work and a CT of her abdomen and pelvis for further evaluation. Patient slightly hemoconcentrated likely with a hemoglobin of 15.2 and hyponatremic with a sodium of 126. Kidney function is normal with a creatinine of 0.95. This is her baseline as well. She has normal liver enzymes. Patient be signed out to oncoming physician pending CT results and for final disposition. Lab Data Labs: Laboratory Results - last 24 hr 04/06/23 04/06/23 04/06/23 22:00 22:00 22:10 WBC 5.4 RBC 5.01 Hgb 15.2 H Hct 42.8 MCV 85.4 MCH 30.3 MCHC 35.5 RDW Std Deviation 36.5 RDW Coeff of Yadi 11.7 Plt Count 233 MPV 9.2 Immature Gran % (Auto) 0.900 Neut % (Auto) 91.4 H Lymph % (Auto) 5.7 L [place] % (Auto) 2.0 Eos % (Auto) 0.0 Baso % (Auto) 0.0 Absolute Neuts (auto) 5.0 Absolute Lymphs (auto) 0.31 L Nucleated RBC % 0 Differential Comment SCANNED Sodium 126 L Potassium 3.6 Chloride 89 L Carbon Dioxide 25.0 Anion Gap 12 BUN 17 Creatinine 0.95 Estim Creat Clear Calc 36.83 Est GFR (MDRD) Af Amer 73 Est GFR (MDRD) Non-Af 60 BUN/Creatinine Ratio 17.9 Glucose 218 H Calcium 9.2 Total Bilirubin 1.00 AST 21 ALT 22 Alkaline Phosphatase 89 Total Protein 6.6 Albumin 3.2 Globulin 3.4 Albumin/Globulin Ratio 0.9 Lipase 15 Urine Color Yellow Urine Clarity Clear Urine pH 5.0 Ur Specific [place] 1.030 Urine Protein 30 H Urine Glucose (UA) 1000 H Urine Ketones 150 A* Urine Occult Blood Negative Urine Nitrite Negative Urine Bilirubin Negative Urine Urobilinogen 1 H Ur Leukocyte Esterase 25 H Urine RBC 0 SEEN Urine WBC 0-5 SEEN Ur Squamous Epith Cells 10-25 SEEN Urine Bacteria 0 SEEN Urine Mucus 0 SEEN Radiography Diagnostic Testing: Clinical Impression(s) from Imaging Studies Abdomen/Pelvis CT 04/06/23 21:11 IMPRESSION: 1. Mild increase in the degree of compression deformity of T12, now decompressed by approximately 70%. 2. Large hiatal hernia again noted with adjacent compressive atelectasis. 3. Slight thickening of the gastric antral wall suggesting a minimal degree of antritis/gastritis. 4. Colonic diverticulosis, without evidence for acute diverticulitis. 5. Abnormally prominent hypodense endometrium for a patient of this age group, and this could be due to exogenous hormonal therapy or endometrial pathology such as hyperplasia. OPTICAL GLASS WET INSPECTOR follow-up suggested, especially there is a history of postmenopausal bleeding. Electronically Signed: Rodriguez Munoz MD at 23:50 EDT , <Dr. Sen Turner, DO - Last Filed: 04/07/23 01:01> MDM Lab Data Labs: Laboratory Results - last 24 hr 04/06/23 04/06/23 04/06/23 22:00 22:00 22:10 WBC 5.4 RBC 5.01 Hgb 15.2 H Hct 42.8 MCV 85.4 MCH 30.3 MCHC 35.5 RDW Std Deviation 36.5 RDW Coeff of [place] 11.7 Plt Count 233 MPV 9.2 Immature Gran % (Auto) 0.900 Neut % (Auto) 91.4 H Lymph % (Auto) 5.7 L [place] % (Auto) 2.0 Eos % (Auto) 0.0 Baso % (Auto) 0.0 Absolute Neuts (auto) 5.0 Absolute Lymphs (auto) 0.31 L Nucleated RBC % 0 Differential Comment SCANNED Sodium 126 L Potassium 3.6 Chloride 89 L Carbon Dioxide 25.0 Anion Gap 12 BUN 17 Creatinine 0.95 Estim Creat Clear Calc 36.83 Est GFR (MDRD) Af Amer 73 Est GFR (MDRD) Non-Af 60 BUN/Creatinine Ratio 17.9 Glucose 218 H Calcium 9.2 Total Bilirubin 1.00 AST 21 ALT 22 Alkaline Phosphatase 89 Total Protein 6.6 Albumin 3.2 Globulin 3.4 Albumin/Globulin Ratio 0.9 Lipase 15 Urine Color Yellow Urine Clarity Clear Urine pH 5.0 Ur Specific [place] 1.030 Urine Protein 30 H Urine Glucose (UA) 1000 H Urine Ketones 150 A* Urine Occult Blood Negative Urine Nitrite Negative Urine Bilirubin Negative Urine Urobilinogen 1 H Ur Leukocyte Esterase 25 H Urine RBC 0 SEEN Urine WBC 0-5 SEEN Ur Squamous Epith Cells 10-25 SEEN Urine Bacteria 0 SEEN Urine Mucus 0 SEEN Radiography Diagnostic Testing: Clinical Impression(s) from Imaging Studies Abdomen/Pelvis CT 04/06/23 21:11 IMPRESSION: 1. Mild increase in the degree of compression deformity of T12, now decompressed by approximately 70%. 2. Large hiatal hernia again noted with adjacent compressive atelectasis. 3. Slight thickening of the gastric antral wall suggesting a minimal degree of antritis/gastritis. 4. Colonic diverticulosis, without evidence for acute diverticulitis. 5. Abnormally prominent hypodense endometrium for a patient of this age group, and this could be due to exogenous hormonal therapy or endometrial pathology such as hyperplasia. OPTICAL GLASS WET INSPECTOR follow-up suggested, especially there is a history of postmenopausal bleeding. Electronically Signed: Rodriguez Munoz MD at 23:50 EDT , Treatment and Re-Evaluation :: Patient was signed out to me while awaiting results of CT scan. CT scan showed a large hiatal hernia with thickening of the wall concerning for gastritis but no signs of gastric outlet or small bowel obstruction. On reevaluation patient is resting comfortably she has had no further bouts of vomiting and she was able to drink water without difficulty. Therefore at this time as there is no signs of blockage she is otherwise safe for discharge. Patient was informed that she may need an EGD as well as ANESTHESIOLOGY MEDICAL DOCTOR referral secondary to the thickened uterus also noted on CT scan. Patient and family do voiced their understanding of this. However as the patient has no signs of infection or obstruction within the GI region there is no need for further observation in the ER or admission and she is otherwise safe for discharge Discharge Plan Triage Chief Complaint: Nausea/Vomiting ED Provider: Marga Solorzano Dx/Rx/DC Orders Clinical Impression: Hernia, hiatal, Gastritis Instructions: ED Gastritis (Adult), ED Hiatal Hernia Prescriptions: No Action calcium carbonate-vitamin D3 250-125 mg-unit tablet 1 tab PO DAILY Ocuvite Adult 50 Plus 250-5-1 mg capsule 1 cap PO DAILY atenolol [Tenormin] 25 mg tablet 25 mg PO DAILY Label Comments: TAKE 1 TABLET BY MOUTH ONCE DAILY triamterene-hydrochlorothiazid 37.5-25 mg tablet 0.5 tab PO DAILY Label Comments: TAKE 1 2 TO 1 (ONE HALF TO ONE) TABLET BY MOUTH ONCE DAILY DIRECTED rosuvastatin 5 mg tablet 2.5 mg PO DAILY Label Comments: TAKE 1 TABLET BY MOUTH ONCE DAILY DIRECTED lorazepam [Ativan] 0.5 mg tablet 0.5 mg PO BID PRN (Reason: anxiety) Qty: 14 0RF Primary Care Provider: Latasha Jo Referrals: Latasha Jo MD [Primary Care Provider] - Activity Restrictions/Additional Instructions: Your CT scan today shows a large hiatal hernia but no signs of gastric outlet or small bowel obstruction. You may need an EGD which is performed by a chair car attendant to further assess the cause of your symptoms in your throat and stomach. Talk to your family doctor about a referral for this. You also may need to follow-up with ANESTHESIOLOGY MEDICAL DOCTOR as the CAT scan noted incidental thickening of your uterus. Over the next few days please focus on eating smaller more frequent meals and eat foods that are thin in nature such as soups yogurts and puddings. If you have any further concerns please return the hospital for repeat evaluation Disposition Disposition: Home, Self Care Discharge Date/Time: 04/07/23 01:08
[2023-04-06] MEDS: Ondansetron 4 MG/2 ML Vial IV (21:59)
[2023-04-06] MEDS: 0.9% Normal Saline 1,000 ML 125 ML IV (21:59)
[2023-04-06 22:07] LABS: Absolute Lymphocyte Count 0.31 X10^3/uL (0.83-4.51); Hematocrit 42.8 % (37-47); Hemoglobin 15.2 g/dL (12.0-15.0); Lymphocyte # 0.31 X10^3/ul (0.83-4.51); Lymphocyte % 5.7 % (19-41); Mean Corp Hgb Conc 35.5 g/dL (32-36); Mean Corpuscular Hgb 30.3 pg (27.0-32.0); Mean Corpuscular Volume 85.4 fL (81-99); Mean Platelet Vol. 9.2 fl (6.2-12.0); Monocyte# 0.11 X10^3/uL; NRBC Flagged by Analyzer 0 % (0-5); Neutrophil # 4.95 X10^3/uL (2.7-7.7); Neutrophil % 91.4 % (47-70); POSITIVE DIFFERENTIAL YES; Platelet Count 233 K/mm3 (150-450); RBC Distribution Width CV 11.7 % (11.6-14.6); RBC Distribution Width SD 36.5 fl (35.1-43.9); Red Blood Count 5.01 M/mm3 (4.2-5.4); White Blood Count 5.4 K/mm3 (4.4-11.0)
[2023-04-06 22:18] LABS: Differential Indicated SCAN CRITERIA MET
[2023-04-06 22:19] LABS: Bacteria 0 SEEN /hpf (None Seen); Mucous, Urine 0 SEEN /hpf (<or=2+)
[2023-04-06 22:31] LABS: Color, Urine Yellow (Yellow); Glucose, Dipstick 1000 mg/dl (Normal); Leukocyte Esterase-Dipstick 25 /ul (Negative); Nitrite-Dipstick Negative (Negative); Occult Blood-Urine Negative /ul (Negative); Protein-Dipstick 30 mg/dl (Negative); Urine Bilirubin Dipstick Negative (Negative); Urine Clarity Clear (Clear); Urine Urobilinogen 1 mg/dl (Normal)
[2023-04-06 22:32] LABS: ALB/GLOB Ratio 0.9 RATIO (0.9-2.4); AST(SGOT) 21 U/L (15-37); Alanine Aminotransfer ALT/SGPT 22 U/L (13-56); Albumin, Serum 3.2 g/dL (3.2-5.0); Alkaline Phosphatase 89 U/L (45-117); Anion Gap 12 (5-15); BUN 17 mg/dL (7-18); BUN/Creat Ratio 17.9 RATIO (10-20); Calcium,Total 9.2 mg/dL (8.5-10.1); Chloride 89 mmol/L (98-107); Creatinine, Serum 0.95 mg/dL (0.55-1.02); EST Glomerular Filtration Rate 60 mL/min (>60); Est Glom Filt Rate - Afr Amer 73 mL/min (>60); Estimated Creatinine Clearance 36.83 ml/min; Globulin 3.4 g/dL (2.2-4.2); Glucose 218 mg/dL (74-106); Lipase 15 U/L (13-75); Potassium 3.6 mmol/L (3.5-5.1); Protein, Total 6.6 g/dL (6.4-8.2); Sodium Level 126 mmol/L (136-145)
[2023-04-06 22:37] LABS: Ketone-Dipstick 150 mg/dl (Negative)
[2023-04-06 22:43] LABS: Differential Comment SCANNED
[2023-04-06 22:43] LABS: Squamous Epithelial Cells - UA 10-25 SEEN /hpf (5-10)
[2023-04-06 22:44] LABS: Red Blood Cells-Urine 0 SEEN /hpf (0-5); White Blood Cells 0-5 SEEN /hpf (0-5)
== END 2023-04-07 01:08 | disposition home or self-care (01) ==
PROVIDERS: Emergency Provider Emergency Medicine; PCP Internal Medicine; Visit Provider Emergency Medicine
DX: K44.9 Diaphragmatic hernia without obstruction or gangrene (principal); K29.70 Gastritis, unspecified, without bleeding; I12.9 Hypertensive chronic kidney disease with stage 1 through stage 4 chronic kidney disease, or unspecified chronic kidney disease; N18.9 Chronic kidney disease, unspecified; Z79.899 Other long term (current) drug therapy
CPT/HCPCS: 74177; 80053; 81001; 83690; 85025; 96361; 96374; 99283; J7030; Q9967; J2405

== ENCOUNTER 2023-04-19 12:27 | Day surgery (SDC) | payer MEDICARE, BC, SELFPAY ==
[2023-04-19] MEDS: Lidocaine Jelly 2% 20 ML Syringe (URO-JET) 1 APPLIC (12:50)
[2023-04-19 12:52] VITALS: BP 118/102; PULSE 117; RESP 20; TEMP 37.1; O2SAT 97
== END 2023-04-19 23:59 | disposition home or self-care (01) ==
PROVIDERS: PCP Internal Medicine; Referring Provider Surgery; Visit Provider Surgery
PROC: F00ZJWZ Instrumental Swallowing and Oral Function Assessment using Swallowing Equipment (ICD-10-PCS; CPT 43235; principal; 2023-04-19 12:55)
DX: Z01.818 Encounter for other preprocedural examination (principal)

== ENCOUNTER 2023-04-23 17:25 | Emergency (ER) | payer MEDICARE, BC, SELFPAY ==
[2023-04-23 17:26] VITALS: BP 132/81; PULSE 110; RESP 18; TEMP 36.1; O2SAT 96; BMI 30.2
--- NOTE | 2023-04-23 18:01 | EDS_ITS ---
HPI History of Present Illness Chief Complaint: Complaint Detail of Chief Complaint: Decreased urine output Informant: patient Narrative Narrative: Patient presents due to decreased urine output this afternoon. She states that she urinated 3 times well this morning. She has been drinking quite a bit of water this afternoon but has not had any urine output. She states she will feel like she needs to urinate but is only able to get a few trickles out. Her abdomen is not painful. She has some slight right low back pain but states that is chronic and not any different than baseline. She does report she had some problems with recent constipation and did take Colace this afternoon. [facility] Medical History Chronic kidney disease Colonic polyp HLD (hyperlipidemia) HTN (hypertension) Hx of nephrolithotomy with removal of calculi Hypokalemia Osteopenia Skin neoplasm Home Medications rosuvastatin 5 mg tablet 2.5 mg PO DAILY 03/09/21 [History Last Taken Unknown] triamterene 37.5 mg-hydrochlorothiazide 25 mg tablet 0.5 tab PO DAILY 03/09/21 [History Last Taken Unknown] calcium carbonate 250 mg-vitamin D3 3.125 mcg (125 unit) tablet 1 tab PO DAILY 05/22/21 [History Last Taken Unknown] vit C,E,zinc,copper-yksxy3p 250 mg-lutein 5 mg-zeaxanthin 1 mg capsule (Ocuvite Adult 50 Plus) 1 cap PO DAILY 05/22/21 [History Last Taken Unknown] lorazepam 0.5 mg tablet (Ativan) 0.5 mg PO BID PRN anxiety #14 tabs 07/26/21 [Rx Last Taken Unknown] docusate sodium 50 mg capsule 50 mg PO DAILY 04/17/23 [History Last Taken Unknown] metoprolol tartrate 50 mg tablet 50 mg PO DAILY 04/17/23 [History Last Taken Unknown] Allergy/AdvReac Type Severity Reaction Status Date / Time bee pollen Allergy Intermediate Swelling Verified 04/17/23 15:14 JOHN Inhibitors Allergy Angioedema Verified 04/17/23 15:14 diphenhydramine Allergy HEART Verified 04/17/23 15:14 [From Benadryl] PALPITATIONS lisinopril [From Prinivil] Allergy Swelling Verified 04/17/23 15:14 metformin Allergy Hives Verified 04/17/23 15:14 Family History Mother Hypertension Arthritis Skin cancer Social History household members: spouse housing: house Smoking Status: Never smoker alcohol intake: current alcohol intake frequency: a few times a week what type of physical activity do you participate in: other details: treadmill frequency: 5-6 times per week duration: 45-60 minutes/day do you feel safe at home: Yes ROS ROS ED Constitutional Constitutional ED: Denies chills or fever(s) Eyes Eyes: Denies change in vision ENT ENT ED: Denies rhinorrhea or sore throat Cardiovascular Cardiovascular: Denies chest pain or palpitations Respiratory/Chest Respiratory/Chest: Denies cough or dyspnea Gastrointestinal Gastrointestinal: Reports constipation; Denies abdominal pain, diarrhea, nausea or vomiting Genitourinary Genitourinary ED: Reports difficulty urinating Musculoskeletal Musculoskeletal: Denies back pain or extremity pain Integumentary Denies Abrasions or rash Neurologic Neurologic: Denies headache(s) or weakness Psychiatric Psychiatric: Denies anxiety or depression Allergic/Immunologic Allergic/Immunologic ED: Denies lip swelling or urticaria EXAM Physical Exam Const Vital Signs: 04/23/23 17:26 Temperature 97.0 F L Temperature Source Temporal Pulse Rate 110 H Respiratory Rate 18 Blood Pressure 132/81 H Blood Pressure Mean 98 Pulse Ox 96 Oxygen Delivery Method Room Air Positive well nourished and well developed General Appearance ED: well developed HEENT Reports normocephalic and head/scalp atraumatic Eyes PERRL and EOMs intact bilaterally Neck supple Chest Wall inspection of chest normal and palpation of chest normal Resp normal respiratory effort and clear to auscultation bilaterally Cardio regular rate and regular rhythm GI normal to inspection, nondistended, normoactive bowel sounds Palpation: soft Back/Spine no CVA tenderness Extremity normal to inspection Neuro oriented x3 and no sensory deficits noted Sensorium / Orientation: alert Motor Exam: strength 5/5 throughout Psych mental status grossly normal Skin no rashes or lesions noted MDM MDM MDM Narrative Medical decision making narrative: BMP obtained to evaluate for renal function. Urinalysis ordered. While in the emergency room patient was able to provide urine sample with normal amount of urination. Lab Data Labs: Laboratory Results - last 24 hr 04/23/23 04/23/23 18:05 18:35 Sodium 130 L Potassium 3.2 L Chloride 94 L Carbon Dioxide 25.0 Anion Gap 11 BUN 17 Creatinine 0.95 Estim Creat Clear Calc 35.06 Est GFR (MDRD) Af Amer 73 Est GFR (MDRD) Non-Af 61 BUN/Creatinine Ratio 18.0 Glucose 135 H Calcium 9.4 Urine Color Yellow Urine Clarity Clear Urine pH 6.5 Ur Specific [place] 1.005 Urine Protein Negative Urine Glucose (UA) Normal Urine Ketones 5 H Urine Occult Blood Negative Urine Nitrite Negative Urine Bilirubin Negative Urine Urobilinogen Normal Ur Leukocyte Esterase Negative Urine RBC 0 SEEN Urine WBC 0-5 SEEN Ur Squamous Epith Cells 0-5 SEEN Urine Bacteria 0 SEEN Urine Mucus 0 SEEN Treatment and Re-Evaluation :: BMP is unremarkable with normal renal function. Urinalysis reveals no sign of infection. Patient did take Colace this afternoon and this may have pulled more fluids into her bowel thus explaining her diminished urine output. At this time she has normal renal function and no sign of infection. She will continue to monitor her symptoms. Discharge Plan Triage Chief Complaint: Complaint ED Provider: Roselia Mejia Dx/Rx/DC Orders Clinical Impression: Decreased urine output Prescriptions: No Action calcium carbonate-vitamin D3 250-125 mg-unit tablet 1 tab PO DAILY Ocuvite Adult 50 Plus 250-5-1 mg capsule 1 cap PO DAILY metoprolol tartrate 50 mg tablet 50 mg PO DAILY docusate sodium 50 mg capsule 50 mg PO DAILY triamterene-hydrochlorothiazid 37.5-25 mg tablet 0.5 tab PO DAILY Label Comments: TAKE 1 2 TO 1 (ONE HALF TO ONE) TABLET BY MOUTH ONCE DAILY DIRECTED rosuvastatin 5 mg tablet 2.5 mg PO DAILY Label Comments: TAKE 1 TABLET BY MOUTH ONCE DAILY DIRECTED lorazepam [Ativan] 0.5 mg tablet 0.5 mg PO BID PRN (Reason: anxiety) Qty: 14 0RF Primary Care Provider: Latasha Jo Referrals: Latasha Jo MD [Primary Care Provider] - As Needed Activity Restrictions/Additional Instructions: As discussed, your lab work reveals normal kidney function. Your urinalysis reveals no evidence of infection at this time. I believe the decreased urine output you noted was secondary to the Colace you had taken. Please continue to monitor your symptoms. Disposition Disposition: Home, Self Care
[2023-04-23 18:23] LABS: Anion Gap 11 (5-15); BUN 17 mg/dL (7-18); Calcium,Total 9.4 mg/dL (8.5-10.1); Chloride 94 mmol/L (98-107); Creatinine, Serum 0.95 mg/dL (0.55-1.02); EST Glomerular Filtration Rate 61 mL/min (>60); Est Glom Filt Rate - Afr Amer 73 mL/min (>60); Estimated Creatinine Clearance 35.06 ml/min; Glucose 135 mg/dL (74-106); Potassium 3.2 mmol/L (3.5-5.1); Sodium Level 130 mmol/L (136-145)
[2023-04-23 18:40] LABS: Bacteria 0 SEEN /hpf (None Seen); Mucous, Urine 0 SEEN /hpf (<or=2+); Red Blood Cells-Urine 0 SEEN /hpf (0-5)
[2023-04-23] MEDS: Potassium Chloride Oral Tablet 20 MEQ 40 MEQ PO (18:46)
[2023-04-23 18:47] LABS: Color, Urine Yellow (Yellow); Glucose, Dipstick Normal (Normal); Ketone-Dipstick 5 mg/dl (Negative); Leukocyte Esterase-Dipstick Negative /ul (Negative); Nitrite-Dipstick Negative (Negative); Occult Blood-Urine Negative /ul (Negative); Protein-Dipstick Negative (Negative); Specific Gravity, Urine 1.005 (1.002-1.030); Urine Bilirubin Dipstick Negative (Negative); Urine Clarity Clear (Clear); Urine Urobilinogen Normal (Normal); Urine pH 6.5 (5.0 - 8.0)
[2023-04-23 19:00] LABS: Squamous Epithelial Cells - UA 0-5 SEEN /hpf (5-10); White Blood Cells 0-5 SEEN /hpf (0-5)
[2023-04-23 19:19] VITALS: RESP 18
== END 2023-04-23 19:20 | disposition home or self-care (01) ==
PROVIDERS: Emergency Provider Emergency Medicine; PCP Internal Medicine; Visit Provider Emergency Medicine
DX: R33.9 Retention of urine, unspecified (principal); N18.9 Chronic kidney disease, unspecified
CPT/HCPCS: 80048; 81001; 99283; A4216

== ENCOUNTER 2023-05-06 08:11 | Day surgery (SDC) | payer MEDICARE, BC, SELFPAY ==
--- NOTE | 2023-05-06 | COLBX_PTH ---
PATIENT: PROSPER MOSQUEDA LOC: [facility] [place] U#:[id number] AGE/SX: 77/F ROOM: RE05/06/[address]: Dr. Cordell Aguilera MD : 1945 BED: DIS: 05/06/2023 SPEC #: [id number] RECD: 05/06/23 13:01 STATUS: MENDOZA RASMUSSEN #: [id number] TRICE: 05/06/23 00:[address]: Cordell Aguilera DEPT: SURGICAL PATHOLOGY RECD BY: Cristóbal Quispe ENTERED: 05/06/23 13:01 SP TYPE: COLON BX OTHR DR: Dr. Latasha Jo MD Tissues: Rectum, NOS Procedures: Surgery Specimen Level IV HEADER OPERATION: [place] with polypectomy, [place] [place] DIAGNOSIS: Hiatal hernia, screening TISSUE SUBMITTED: Rectal polyp MICROSCOPIC DIAGNOSIS Rectal polyp, biopsy: Tubulovillous adenoma. AM:ilir 05/08/2023 MICROSCOPIC DESCRIPTION Slides are reviewed. GROSS DESCRIPTION Received in fixative is one container labeled with the patient's name and designated rectal polyp. The specimen consists of a mackenzie-pink polyp measuring 1.5 x 1.0 x 0.7 cm. This is bisected. Also present in the container are two irregular fragments of mackenzie soft tissue measuring in aggregate 0.5 x 0.3 x 0.1 cm. The entire specimen is submitted in one cassette. / SJ:ilir 05/06/2023 TC:1 CPT: 06532
[2023-05-06] MEDS: Lactated Ringers 1,000 ML 15 ML IV (08:30)
[2023-05-06 08:40] VITALS: BP 127/83; PULSE 98; RESP 16; TEMP 36.7; O2SAT 97; BMI 28.3
--- NOTE | 2023-05-06 09:05 | NURSING ---
tap water enema given until pt could no longer hold fluid in. assisted pt to [facility]. yellow/grity stool noted in bsc. endo rn made aware.
--- NOTE | 2023-05-06 09:59 | HP.PCM_ITS ---
History and Physical Date of Admission: 05/06/23 Intake Vital Signs 04/06/2320:40 04/17/2312:55 Height 5 ft 1 in 5 ft Weight: 155 lb BMI 30.2 BP 148/77 H 131/82 H Blood Pressure Location Rt brachial Position Sitting Respiration 20 H 17 Pulse 88 100 Pulse Source Monitor Temp 98.7 F 97.5 F L Temp Source Temporal Temporal Pulse Oximetry (%) 96 97 Oxygen Delivery Method room air Intake Visit Reasons: HIATEL HERNIA/GASTRITIS/DYSPHAGIA Chief Complaint: hiatal hernia/gastritis/dysphagia Is patient in pain?: No Allergies bee pollen Allergy (Intermediate, Verified 04/17/23 12:57) SwellingACE Inhibitors Allergy (Verified 04/17/23 12:57) Angioedemadiphenhydramine [From Benadryl] Allergy (Verified 04/17/23 12:57) HEART PALPITATIONSlisinopril [From Prinivil] Allergy (Verified 04/17/23 12:57) Swellingmetformin Allergy (Verified 04/17/23 12:57) Hives Medications rosuvastatin 5 mg tablet 2.5 mg PO DAILY 03/09/21 [History Confirmed 04/17/23] triamterene 37.5 mg-hydrochlorothiazide 25 mg tablet 0.5 tab PO DAILY 03/09/21 [History Confirmed 04/17/23] calcium carbonate 250 mg-vitamin D3 3.125 mcg (125 unit) tablet 1 tab PO DAILY 05/22/21 [History Confirmed 04/17/23] vit C,E,zinc,copper-hcymz0r 250 mg-lutein 5 mg-zeaxanthin 1 mg capsule (Ocuvite Adult 50 Plus) 1 cap PO DAILY 05/22/21 [History Confirmed 04/17/23] lorazepam 0.5 mg tablet (Ativan) 0.5 mg PO BID PRN anxiety #14 tabs 07/26/21 [Rx Confirmed 04/17/23] docusate sodium 50 mg capsule 50 mg PO DAILY 04/17/23 [History Confirmed 04/17/23] metoprolol tartrate 50 mg tablet 50 mg PO DAILY 04/17/23 [History Confirmed 04/17/23] PFSH Medical History Chronic kidney disease Colonic polyp HLD (hyperlipidemia) HTN (hypertension) Hx of nephrolithotomy with removal of calculi Hypokalemia Osteopenia Skin neoplasm Family History Mother Hypertension Arthritis Skin cancer Social History household members: spouse housing: house Smoking Status: Never smoker alcohol intake: current alcohol intake frequency: a few times a week what type of physical activity do you participate in: other details: treadmill frequency: 5-6 times per week duration: 45-60 minutes/day do you feel safe at home: Yes HPI HPI HPI: Patient is a 77-year-old female here for dysphagia. Patient reports that the dysphagia has been going on for a little over a month. She reports difficulty with solids and liquids. She has a longstanding hiatal hernia and this was present on her last CT scan as well. She reports that sometimes she feels like food is getting stuck in her chest. Patient also reports her last colonoscopy was 10 years ago and she is due for screening colonoscopy. ROS General General: Yes weight change and fatigue; No appetite, colon cancer, breast cancer or weakness HEENT HEENT: Yes difficulty swallowing; No eye injury, eye surgery, swollen glands or hoarseness Endo Endocrine: No thyroid disease, diabetes mellitus, thyroid cancer, Hair loss, heat intolerance or cold intolerance Skin Skin: No rash or changing moles Musc Musculoskeletal: Yes back problems; No arthritis, rheumatoid arthritis, gout or joint pain Cardio Cardiovascular: Yes high blood pressure; No murmur, pacemaker, heart disease, atrial fibrillation, heart attack, heart stent, palpitations, shortness of breat with exertion or chest pain Psych Psychiatric: Yes anxiety; No depression or hearing voices Resp Respiratory: No shortness of breath, No sleep apnea, No cough, No COPD, No asthma, No emphysema and No wheezing Gastro Gastrointestinal: Yes abdominal pain, Yes nausea or vomiting, No diarrhea, Yes constipation, No blood in stool, No acid reflux, No hemorrhoids, No ulcers, No gallbladder problem and No black,tarry stools Kaleb Hematologic: No blood thinners, No blood disorders, No bleeding, No anemia and No blood clots Neuro Neurologic: No system reviewed and no additional complaints, except as documented, No as per HPI, No abnormal gait, No abnormal hearing, No abnormal movements, No abnormal speech, No behavioral changes, No burning sensations, No confusion, No convulsions, No disequilibrium, No dizziness, No localized weakness, No frequent falls, No headache(s), No lack of coordination, No loss of vision, No memory loss, No numbness, No other visual disturbances, No radicular pain, No restless legs, No sensory deficit, No syncope, No tingling, No tremor(s), No weakness and No other Exam Const General: cooperative Orientation: alert and oriented x3 HENMT Head: normal to inspection Neck Neck: normal visual inspection and full ROM Chest Chest palpation & inspection: normal inspection of the chest Resp Effort & Inspection: normal respiratory effort Auscultation: clear to auscultation bilaterally Cardio Rate: regular rate Rhythm: regular rhythm GI Inspection: non-distended Palpation: soft and nontender Skin General: no rashes or lesions noted Neuro General: patient alert and patient oriented x3 Extrem General: full ROM Psych Appearance: grossly normal Mental Status: mental status grossly normal Assessment and Plan Assessment and Plan (1) Hiatal hernia: Status: Acute (2) Screen for colon cancer: Status: Acute Orders: Orders Colonoscopy Today EGD Today Plan The patient has a very large hiatal hernia with half of her stomach in the chest. I will start work-up with an EGD and manometry. I will also perform a colonoscopy as she is due for screening colonoscopy. Patient will follow-up after this to discuss fundoplication and hiatal hernia repair. I explained endoscopy in detail to the patient. I explained the risks including but not limited to stroke or heart attack with anesthesia, perforation of the GI tract, bleeding, infection. I explained that any of these could necessitate further emergency surgery. The patient understands and all questions were answered sufficiently. The patient wishes to proceed with procedure. Coredll Aguilera MD Pager: [facility] [address] [place] [address], [address] [place] [address] Office: I have examined the patient and the H&P has been reviewed. There are no clinical changes since date of exam.
[2023-05-06 10:37] VITALS: BP 113/60; BP 127/83; PULSE 67; RESP 18; TEMP 36.2; O2SAT 97
--- NOTE | 2023-05-06 10:37 | PN_ITS ---
Progress Note I performed an EGD on the patient today. It appears that her esophagus is more shortened than I expected. Her GE junction was at 30 cm. Her diaphragm was at 36 cm. Due to the shortness esophagus and the appearance that this is a sliding hernia I will send her to Dr. Ramsay at [facility] for evaluation. Cordell Aguilera MD Pager: [facility] [address] [place] [address], [address] [place] [address] Office:
--- NOTE | 2023-05-06 10:37 | PCM.PN.BLA ---
Progress Note I performed an EGD on the patient today. It appears that her esophagus is more shortened than I expected. Her GE junction was at 30 cm. Her diaphragm was at 36 cm. Due to the shortness esophagus and the appearance that this is a sliding hernia I will send her to Dr. Ramsay at [facility] for evaluation. Cordell Aguilera MD Pager: [facility] [address] [place] [address], [address] [place] [address] Office:
[2023-05-06 10:40] VITALS: BP 111/58; BP 127/83; PULSE 71; RESP 18; O2SAT 100
--- NOTE | 2023-05-06 10:42 | OP.EGD_ITS ---
Patient Name: Rayne Mayberry Procedure Date: 05/06/2023 10:06 AM Date of : 1945 Age: 77 Procedure: Upper GI endoscopy Indications: Dysphagia Providers: Cordell Aguilera MD Medicines: Monitored Anesthesia Care Patient Profile: This is a 77 year old female. Refer to note in patient chart for documentation of history and physical. Complications: No immediate complications. Estimated blood loss: Minimal. Procedure: Pre-Anesthesia Assessment: - Prior to the procedure, a History and Physical was performed, and patient medications and allergies were reviewed. The patient's tolerance of previous anesthesia was also reviewed. The risks and benefits of the procedure and the sedation options and risks were discussed with the patient. All questions were answered, and informed consent was obtained. Prior Anticoagulants: The patient has taken no previous anticoagulant or antiplatelet agents. After reviewing the risks and benefits, the patient was deemed in satisfactory condition to undergo the procedure. After obtaining informed consent, the endoscope was passed under direct vision. Throughout the procedure, the patient's blood pressure, pulse, and oxygen saturations were monitored continuously. The gastroscope was introduced through the mouth, and advanced to the third part of duodenum. The upper GI endoscopy was accomplished without difficulty. The patient tolerated the procedure well. Scope In: 10:15:50 AM Scope Out: 10:18:32 AM Total Procedure Duration Time 0 hours 2 minutes 42 seconds Findings: A large hiatal hernia was present. GE junction appeared normal, 30 cm. Hiatus was at 36 cm. The stomach was normal. The examined duodenum was normal. Impression: - Large hiatal hernia. - Normal stomach. - Normal examined duodenum. - No specimens collected. Recommendation: - Discharge patient to home. - Resume previous diet. - Continue present medications. - Refer to a surgeon at appointment to be scheduled. Procedure Code(s): --- Professional --- 45545, Esophagogastroduodenoscopy, flexible, transoral; diagnostic, including collection of specimen(s) by brushing or washing, when performed (separate procedure) Diagnosis Code(s): --- Professional --- K44.9, Diaphragmatic hernia without obstruction or gangrene R13.10, Dysphagia, unspecified CPT copyright 2017 [employer] [place] [employer]. All rights reserved. The codes documented in this report are preliminary and upon web design intern review may be revised to meet current compliance requirements. Cordell Aguilera MD 05/06/2023 10:41:24 AM This report has been signed electronically. Number of Addenda: 0 Note Initiated On: 05/06/2023 10:06 AM
--- NOTE | 2023-05-06 10:42 | OP.CCLET_ITS ---
05/06/2023 Latasha Jo [address] [place] [address] Re : Upper GI endoscopy procedure for Rayne Mayberry Dear Dr. Jo This procedure was performed on Saturday, May 06, 2023. My impressions and recommendations are as follows: Impressions : - Large hiatal hernia. - Normal stomach. - Normal examined duodenum. - No specimens collected. Recommendations : - Discharge patient to home. - Resume previous diet. - Continue present medications. - Refer to a surgeon at appointment to be scheduled. My findings are described in the full procedure note, which is enclosed. If I can be of further assistance, please feel free to contact me at Doctor phone number(s): , Work: . Sincerely, Cordell Aguilera MD 05/06/2023 10:41:24 AM This report has been signed electronically.
[2023-05-06 10:45] VITALS: BP 107/60; BP 127/83; PULSE 71; RESP 18; O2SAT 99
--- NOTE | 2023-05-06 10:47 | OP.COLON_ITS ---
Patient Name: Rayne Mayberry Procedure Date: 05/06/2023 10:19 AM Date of : 1945 Age: 77 Procedure: Colonoscopy Indications: Screening for colorectal malignant neoplasm Providers: Cordell Aguilera MD Medicines: Monitored Anesthesia Care Patient Profile: This is a 77 year old female. Refer to note in patient chart for documentation of history and physical. Last Colonoscopy: 10 years ago. Complications: No immediate complications. Procedure: Pre-Anesthesia Assessment: - Prior to the procedure, a History and Physical was performed, and patient medications and allergies were reviewed. The patient's tolerance of previous anesthesia was also reviewed. The risks and benefits of the procedure and the sedation options and risks were discussed with the patient. All questions were answered, and informed consent was obtained. Prior Anticoagulants: The patient has taken no previous anticoagulant or antiplatelet agents. After reviewing the risks and benefits, the patient was deemed in satisfactory condition to undergo the procedure. After I obtained informed consent, the scope was passed under direct vision. Throughout the procedure, the patient's blood pressure, pulse, and oxygen saturations were monitored continuously. The colonoscope was introduced through the anus and advanced to the cecum, identified by appendiceal orifice and ileocecal valve. The colonoscopy was performed without difficulty. The patient tolerated the procedure well. The quality of the bowel preparation was good. Scope In: 10:20:51 AM Scope Withdrawal Time 0 hours 7 minutes 27 seconds Scope Out: 10:32:45 AM Total Procedure Duration Time 0 hours 11 minutes 54 seconds Findings: A polyp was found in the rectum. The polyp was removed with a hot snare. Resection and retrieval were complete. The entire examined colon appeared normal on direct and retroflexion views. Impression: - One polyp in the rectum, removed with a hot snare. Resected and retrieved. - The entire examined colon is normal on direct and retroflexion views. Recommendation: - Discharge patient to home. - Resume previous diet. - Continue present medications. - Await pathology results. - Repeat colonoscopy after studies are complete for surveillance based on pathology results. Procedure Code(s): --- Professional --- 62249, 33, Colonoscopy, flexible; with removal of tumor(s), polyp(s), or other lesion(s) by snare technique Diagnosis Code(s): --- Professional --- Z12.11, Encounter for screening for malignant neoplasm of colon K62.1, Rectal polyp CPT copyright 2017 [employer]. All rights reserved. The codes documented in this report are preliminary and upon agricultural technical officer review may be revised to meet current compliance requirements. Cordell Aguilera MD 05/06/2023 10:46:55 AM This report has been signed electronically. Number of Addenda: 0 Note Initiated On: 05/06/2023 10:19 AM
--- NOTE | 2023-05-06 10:48 | OP.CCLET_ITS ---
05/06/2023 Latasha Jo [address] [place] [address] Re : Colonoscopy procedure for Rayne Mayberry Dear Dr. Jo This procedure was performed on Saturday, May 06, 2023. My impressions and recommendations are as follows: Impressions : - One polyp in the rectum, removed with a hot snare. Resected and retrieved. - The entire examined colon is normal on direct and retroflexion views. Recommendations : - Discharge patient to home. - Resume previous diet. - Continue present medications. - Await pathology results. - Repeat colonoscopy after studies are complete for surveillance based on pathology results. My findings are described in the full procedure note, which is enclosed. If I can be of further assistance, please feel free to contact me at Doctor phone number(s): , Work: . Sincerely, Cordell Aguilera MD 05/06/2023 10:46:55 AM This report has been signed electronically.
[2023-05-06 10:50] VITALS: BP 115/60; BP 127/83; PULSE 67; RESP 18; TEMP 36.1; O2SAT 99
[2023-05-06 11:02] VITALS: BP 127/83
== END 2023-05-06 11:25 | disposition home or self-care (01) ==
LOC: SDC 08:13 → AC 08:14
PROVIDERS: PCP Internal Medicine; Referring Provider Surgery; Visit Provider Surgery
PROC: 0DJD8ZZ Inspection of Lower Intestinal Tract, Via Natural or Artificial Opening Endoscopic (ICD-10-PCS; CPT 45378; principal; 2023-05-06 09:55)
DX: Z12.11 Encounter for screening for malignant neoplasm of colon (principal); I47.1 Supraventricular tachycardia; D12.8 Benign neoplasm of rectum; K44.9 Diaphragmatic hernia without obstruction or gangrene; Q39.8 Other congenital malformations of esophagus; I10 Essential (primary) hypertension; E78.00 Pure hypercholesterolemia, unspecified; F41.9 Anxiety disorder, unspecified; Z79.899 Other long term (current) drug therapy
CPT/HCPCS: 45385; 43235; 88305; J7120; J2405

== ENCOUNTER 2023-05-31 08:03 | Day surgery (SDC) | payer MEDICARE, BC, SELFPAY ==
[2023-05-31] VITALS (7 sets, daily range): BP systolic 107–125; BP diastolic 58–75; PULSE 68–80; RESP 16–18; TEMP 36.6–36.7; O2SAT 95–99; BMI 27.8
[2023-05-31] MEDS: Lactated Ringers 1,000 ML 15 ML IV (08:35)
[2023-05-31 08:39] LABS: Hematocrit 45.8 % (37-47); Mean Corp Hgb Conc 32.8 g/dL (32-36); Mean Corpuscular Hgb 29.9 pg (27.0-32.0); Mean Corpuscular Volume 91.2 fL (81-99); Mean Platelet Vol. 9.8 fl (6.2-12.0); Platelet Count 255 K/mm3 (150-450); RBC Distribution Width CV 13.2 % (11.6-14.6); RBC Distribution Width SD 44.4 fl (35.1-43.9); Red Blood Count 5.02 M/mm3 (4.2-5.4); White Blood Count 6.3 K/mm3 (4.4-11.0)
[2023-05-31] MEDS: Lidocaine 1% (20 ml mdv) 20 ML Vial (09:53)
--- NOTE | 2023-05-31 09:55 | EMB_PTH ---
PATIENT: PROSPER MOSQUEDA LOC: [facility] U#:[id number] AGE/SX: 77/F ROOM: RE05/31/[address]: Dr. Deja Mead DO : 1945 BED: DIS: 05/31/2023 SPEC #: [id number] RECD: 05/31/23 11:35 STATUS: MENDOZA REFeliciano #: [id number] TRICE: 05/31/23 09:[address]: Deja Mead DEPT: SURGICAL PATHOLOGY RECD BY: Emilee Fajardo ENTERED: 05/31/23 12:01 SP TYPE: ENDOM BX/C OTHR DR: Dr. 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 Fragments of myometrium. Fragments of benign ectocervical epithelium. See comment. DEEPTHI:ilir 06/03/2023 COMMENT Many of the fragments show fibrosis and may represent fragments of benign endometrial polyp. Clinical correlation and appropriate follow up are necessary. MICROSCOPIC DESCRIPTION Slides are reviewed. GROSS DESCRIPTION Received in fixative is one container labeled with the patient's name and designated endometrial curettings and endometrial polyp. The specimen consists of multiple irregular fragments of mackenzie soft tissue mixed with hemorrhagic soft tissue that in aggregate measure 2.5 x 1.5 x 0.2 cm. The specimen is totally submitted in one cassette. / DEEPTHI:ilir 05/31/2023 TC:5 CPT: 06392
--- NOTE | 2023-05-31 10:16 | DCINST_ITS ---
Discharge Instructions Diet Discharge Diet: No restrictions Activity Discharge Activity: May Not Drive (for 24 hours after surgery) and May Not Shower (for 24 hours after surgery) May resume sexual activity in: 1-2 weeks (nothing in the vagina and no soaking in water for 1 week) Weight Bearing Status: Weight bearing as tolerated Lifting Restrictions: none Dressing / Incision Call your doctor if you observe: Fever of 101 or Higher, Coldness, Increased Pain, Numbness or Tingling, Change in Color, Inability to urinate, Inability to have a bowel movement, Using more than 1 pad per hour, Shortness of breath, Dizziness, Fainting spells, Swelling in the ankles, Chest pain, Increased palpitations (irregular heartbeat), Calf discomfort and Uncontrolled pain Follow Up Care Test Results: Test results from this visit will be discussed in further detail at your follow- up appointment, if applicable. Discharge Plan Admission Primary Reason for Your Visit: surgery Attending Provider: Deja Mead Primary Care Provider: Latasha Jo Instructions Patient Instructions: Dilation and Curettage Discharge Orders/Prescriptions Prescriptions: Continued calcium carbonate-vitamin D3 250-125 mg-unit tablet 1 tab PO DAILY Ocuvite Adult 50 Plus 250-5-1 mg capsule 1 cap PO DAILY metoprolol tartrate 50 mg tablet 50 mg PO QHS triamterene-hydrochlorothiazid 37.5-25 mg tablet 0.5 tab PO DAILY Patient Comments: TAKE 1 2 TO 1 (ONE HALF TO ONE) TABLET BY MOUTH ONCE DAILY DIRECTED rosuvastatin 5 mg tablet 2.5 mg PO DAILY Patient Comments: TAKE 1 TABLET BY MOUTH ONCE DAILY DIRECTED lorazepam [Ativan] 0.5 mg tablet 0.5 mg PO BID PRN (Reason: anxiety) Qty: 14 0RF Referrals / Follow Up: Latasha Jo MD [Primary Care Provider] - Disposition Disposition (needs filled in before D/C Order can be placed): Home, Self Care
--- NOTE | 2023-05-31 10:17 | PCM.OPRPT ---
Problems Associated Problem List Diagnoses (1) PMB (postmenopausal bleeding): (2) Endometrial polyp: Report of Operation Date of Procedure: 05/31/23 Pre-Operative Diagnosis: PMB, endometrial polyp Post-Operative Diagnosis: As above Surgery/Procedure Performed:: Hysteroscopy, polypectomy, D&C Description of Surgical Findings:: 1 Endometrial polyp noted at the fundus of the uterus. No other lesions noted. Endometrium atrophic appearing. Bilateral tubal ostia visualized. Normal endocervical canal without lesions. Surgeon: Deja Mead Type of Anesthesia: MAC Special Medications: None Specimen's removed: Endometrial polyp Endometrial curettings Drains: None Estimated Blood Loss (mL): < 50 Fluids Replaced: 350 cc deficit Description of Procedure: Patient was taken to the operating room where MAC anesthesia was found to be adequate. She was prepped and draped in the dorsal lithotomy position using yellow fin stirrups. A weighted speculum was placed in the vagina to expose the cervix. The anterior lip of the cervix was grasped with single-tooth tenaculum. Cervix was serially dilated to accommodate the Symphion hysteroscope. The Symphion hysteroscope was advanced to the fundus of uterus and the uterus was distended with normal saline as distention media. Bilateral tubal ostia were visualized. The endometrium was atrophic appearing. 1 endometrial polyp was noted at the fundus of the uterus. The endometrial polyp was resected using the Symphion resection device. The hysteroscope was then removed. Pictures were taken. A sharp curettage was performed. The endometrial polyp and endometrial cuttings were sent to pathology for review. Bleeding was hemostatic. All instruments were removed from the vagina. A vaginal sweep was performed. Instrument sponge counts were correct. The patient was taken to the recovery room in stable condition. Grafts/Implants Used: None Procedure Start Time: 09:53 Procedure Stop Time: 10:10 Complications NOne Admit VTE Documentation VTE Present on Admission: No VTE Mechan Device Prophylaxis: SCD's
== END 2023-05-31 11:20 | disposition home or self-care (01) ==
LOC: SDC 08:05 → AC 08:05
PROVIDERS: PCP Internal Medicine; Referring Provider Obstetrics & Gynecology; Visit Provider Obstetrics & Gynecology
PROC: 0UB98ZZ Excision of Uterus, Via Natural or Artificial Opening Endoscopic (ICD-10-PCS; CPT 58558; principal; 2023-05-31 09:40)
DX: N95.0 Postmenopausal bleeding (principal); N84.0 Polyp of corpus uteri; F41.9 Anxiety disorder, unspecified; N80.00 Endometriosis of the uterus, unspecified; M48.061 Spinal stenosis, lumbar region without neurogenic claudication; E78.00 Pure hypercholesterolemia, unspecified; I12.9 Hypertensive chronic kidney disease with stage 1 through stage 4 chronic kidney disease, or unspecified chronic kidney disease; N18.9 Chronic kidney disease, unspecified; Z79.899 Other long term (current) drug therapy; Z86.010 Personal history of colon polyps
CPT/HCPCS: 58558; 00952; 85027; 86850; 86900; 86901; 88305; J7120; J2405

== ENCOUNTER → 2024-02-04 | Outpatient (CLI) | payer MEDICARE, BC, SELFPAY | END | disposition home or self-care (01) | LOC: LABSPEC 12:45 | PROVIDERS: PCP Internal Medicine; Referring Provider Dermatology; Visit Provider Dermatology | DX: B35.1 Tinea unguium (principal) | CPT/HCPCS: 87077; 87101 ==